=== PATIENT | male | born 1935 | race Caucasian/White ===

== ENCOUNTER 2017-12-09 11:27 | Inpatient (IN) | payer MEDICARE, OTHER ==
[2017-12-09 11:34] VITALS: BMI 29.3
[2017-12-09 12:41] LABS: BASO # 0.1 K/uL (0.0-0.2); LYMPH # 0.3 K/uL (1.0-4.3); MEAN PLATELET VOLUME 8.6 fl (7.2-11.7); MONO # 0.4 K/uL (0.0-0.8); NEUT # 6.8 K/uL (1.8-7.0); WHITE BLOOD COUNT 7.7 K/uL (4.8-10.8)
[2017-12-09 12:49] LABS: BASO % 0.9 % (0.0-2.0); EOS % 0.5 % (0.0-4.0); LYMPH % 4.3 % (20.0-40.0); MEAN CELL VOLUME 95.4 fl (80.0-94.0); MEAN CORPUSCULAR HGB CONC 34.6 g/dL (33.0-37.0); MONO % 5.4 % (0.0-10.0); NEUT % 88.9 % (50.0-75.0); NRBC % 0.1 % (0.0-0.0); PLATELET COUNT 290 K/uL (130-400); RBC 1.96 Mil/uL (4.40-5.90); RED CELL DISTRIBUTION WIDTH 13.4 % (11.5-14.5)
[2017-12-09 12:52] LABS: ALB/GLOB RATIO 1.4 (1.0-2.1); ALBUMIN 3.8 g/dL (3.5-5.0); CALCIUM 10.1 mg/dL (8.4-10.2); HEMOGLOBIN 6.5 g/dL (12.0-18.0)
[2017-12-09 13:03] LABS: SQUAMOUS EPITHIAL < 1 /hpf (0-5); URINE BILIRUBIN NEGATIVE (NEGATIVE); URINE BLOOD MODERATE (NEGATIVE); URINE CLARITY SLIGHTY-CLOUDY (Clear); URINE COLOR YELLOW (YELLOW); URINE GLUCOSE (UA) NEG (Normal); URINE HYALINE CAST 0-2 /hpf (0-2); URINE LEUKOCYTE ESTERASE NEG Leu/uL (Negative); URINE PROTEIN >=500 mg/dL (NEGATIVE); URINE UROBILINOGEN 0.2-1.0 mg/dL (0.2-1.0)
[2017-12-09 13:04] LABS: PROTHROMBIN TIME 10.7 Seconds (9.8-13.1)
--- NOTE | 2017-12-09 13:05 | ED PDOC ---
HPI: Abdomen Time Seen by Provider: 12/09/17 11:56 Chief Complaint (Nursing): GI Problem Chief Complaint (Provider): rectal bleeding, anemia History Per: Patient, Other (PMD ) Onset/Duration Of Symptoms: Gradual (2 months) Associated Symptoms: denies: Vomiting, Diarrhea Exacerbating Factors: Walking Alleviating Factors: None Last Bowel Movement: Today Additional Complaint(s): 82yo male hx colon and prostate cancer s/p recent radiation, states hes been having intermittent rectal bleeding for 2 months, went to PMD Dr Watts and had outpatient bloodwork done, showing anemia 7.6, patient does not some dizziness and exertional dyspnea, fatigue, denies chest pain, headache, syncope or hematuria. Past Medical History Reviewed: Historical Data, Nursing Documentation, Vital Signs Vital Signs: Last Vital Signs Temp 98.5 F 12/09/17 14:46 Pulse 83 12/09/17 14:46 Resp 12 12/09/17 14:46 BP 140/79 12/09/17 14:46 Pulse Ox 94 L 12/09/17 14:46 - Medical History PMH: HTN - Surgical History Other surgeries: colon - Family History Family History: States: Unknown Family Hx - Living Arrangements Living Arrangements: With Family - Social History Current smoker - smoking cessation education provided: No - Home Medications Home Medications: Ambulatory Orders Medication Instructions Recorded Clopidogrel [Plavix] 75 mg PO DAILY 12/09/17 Enalapril/Hydrochlorothiazide 1 tab PO DAILY 12/09/17 [Enalapril Maleate and Hydrochlorothiazide 10 ] Finasteride [Proscar] 5 mg PO DAILY 12/09/17 Folic Acid 1 mg PO DAILY 12/09/17 Glipizide [Glucotrol] 10 mg PO BID 12/09/17 Sitagliptin Phos/Metformin HCl 1 each PO BID 12/09/17 [Janumet 50-1,000 mg Tablet] Tamsulosin HCl [Flomax] 0.4 mg PO DAILY 12/09/17 amLODIPine [Norvasc] 10 mg PO DAILY 12/09/17 - Allergies Allergies/Adverse Reactions: Allergies Allergy/AdvReac Type Severity Reaction Status Date / Time pollen extracts Allergy SHORTNESS Verified 04/13/16 14:00 OF BREATH Review of Systems ROS Statement: Except As Marked, All Systems Reviewed And Found Negative Constitutional: Negative for: Fever Cardiovascular: Negative for: Chest Pain Respiratory: Negative for: Shortness of Breath Gastrointestinal: Positive for: Hematochezia. Negative for: Abdominal Pain, Constipation, Hematemesis Genitourinary Male: Negative for: Dysuria, Hematuria Musculoskeletal: Negative for: Neck Pain Skin: Negative for: Rash Neurological: Positive for: Dizziness. Negative for: Weakness Physical Exam - Reviewed Nursing Documentation Reviewed: Yes Vital Signs Reviewed: Yes - Physical Exam Appears: Positive for: Well, Non-toxic, No Acute Distress Head Exam: Positive for: ATRAUMATIC, NORMAL INSPECTION, NORMOCEPHALIC Skin: Positive for: Warm, Pallor Eye Exam: Positive for: EOMI, Normal appearance, PERRL ENT: Positive for: Normal ENT Inspection Neck: Positive for: Normal, Painless ROM Cardiovascular/Chest: Positive for: Regular Rate, Rhythm Respiratory: Positive for: CNT, Normal Breath Sounds Gastrointestinal/Abdominal: Positive for: Soft. Negative for: Tenderness, Guarding Back: Positive for: Normal Inspection Extremity: Positive for: Normal ROM Neurologic/Psych: Positive for: Alert, Oriented. Negative for: Motor/Sensory Deficits - Laboratory Results Result Diagrams: 12/09/17 12:14 12/09/17 12:14 - ECG O2 Sat by Pulse Oximetry: 97 Medical Decision Making Medical Decision Making: labs reviewed and reveal worsening anemia d/w Dr Watts, Hgb this week 7.6 outpatient, now worsening. Admit hospitalist Dr Hathaway for PRBC and oncology/ GI evaluations. PRBC ordered Results d/w patient, he agrees w plan and PRBC transfusion consent obtained Disposition - Clinical Impression Clinical Impression: Malignancy, Severe anemia - Patient ED Disposition Is Patient to be Admitted: Yes Counseled Patient/Family Regarding: Studies Performed - Disposition Disposition Time: 12:50 Condition: FAIR - Pt Status Changed To: Hospital Disposition Of: Inpatient - Admit Certification Admit to Inpatient:: After my assessment, the patient will require hospitalization for at least two midnights. This is because of the severity of symptoms shown, intensity of services needed, and/or the medical risk in this patient being treated as an outpatient. - POA Present On Arrival: None
[2017-12-09 13:07] LABS: PARTIAL THROMBOPLASTIN TIME 27.3 Seconds (25.6-37.1)
--- NOTE | 2017-12-09 13:31 | RAD ---
Date of service: 12/09/2017 HISTORY: SOB COMPARISON: 04/13/2016. FINDINGS: LUNGS: The lungs are well inflated and clear. PLEURA: Suspect small right pleural effusion, no pneumothorax apparent. There is fluid in the minor fissure. CARDIOVASCULAR: There is persistent mild cardiomegaly. OSSEOUS STRUCTURES: No significant abnormalities. VISUALIZED UPPER ABDOMEN: Normal. OTHER FINDINGS: There is chronic elevation of the right hemidiaphragm. IMPRESSION: No active pulmonary disease. Suspect small right pleural effusion.
[2017-12-09 13:42] LABS: LYMPHOCYTE 5 % (20-50); MONOCYTE 7 % (0-10); NEUTROPHIL 88 % (42-75); PLATELET ESTIMATE NORMAL (NORMAL); TOTAL CELLS COUNTED 100
[2017-12-09 13:43] LABS: HYPOCHROMIC MODERATE; PLATELET CLUMPS PRESENT; TOXIC GRANULATION PRESENT
[2017-12-09 17:01] LABS: BASO % 0.6 % (0.0-2.0); EOS % 0.2 % (0.0-4.0); HEMOGLOBIN 6.6 g/dL (12.0-18.0); LYMPH # 0.7 K/uL (1.0-4.3); LYMPH % 9.9 % (20.0-40.0); MEAN CELL VOLUME 94.8 fl (80.0-94.0); MEAN CORPUSCULAR HEMOGLOBIN 33.1 pg (27.0-31.0); MEAN CORPUSCULAR HGB CONC 34.9 g/dL (33.0-37.0); MEAN PLATELET VOLUME 7.8 fl (7.2-11.7); MONO # 0.5 K/uL (0.0-0.8); MONO % 7.8 % (0.0-10.0); NEUT # 5.7 K/uL (1.8-7.0); NEUT % 81.5 % (50.0-75.0); RBC 2.01 Mil/uL (4.40-5.90); RED CELL DISTRIBUTION WIDTH 13.3 % (11.5-14.5)
--- NOTE | 2017-12-09 17:44 | CP.PCM.HP ---
History of Present Illness - History of Present Illness History of Present Illness: 82-year-old male with a past medical history of colon cancer (2008), prostate cancer (2018), stroke, DM2, and HTN presents to the ED with a two month history of persistent rectal bleeding and weakness. The bleeding began 2-4 months status -post radiation therapy for prostate cancer, is always accompanied with a bowel movement, is dark red in color, and was initially very minimal but progressively became more and more. He admits to constipation, having a bowel movement every 1-3 days. He has recently began to feel very weak, especially upon exertion, which is what prompted him to visit his PMD (Dr. Watts) who found a Hgb 7.6 and recommended coming to the ED for a transfusion. He was due for a routine colonoscopy about 6 months ago, but did not get one. Patient denies chills, dizziness, syncope, orthostatic changes, shortness of breath, loss of appetite, weight loss, chest pain, abdominal pain, hematuria, frequency , urgency, pain with bowel movements, diarrhea and difficulty sleeping. Patient is semi-poor historian in regard to dates/timeline. PMD: Dr. Watts Specialist: Dr. Nichols (Urologist), Dr. Verdin (Onc - Colon Ca 2007) PMHx: Colon Cancer (2008), prostate cancer (2018), stroke, DM2, HTN SurgHx: colon cancer - unsure of exact procedure FMhx: unkown SocHx: denies etoh, tobacco, elicit drugs Allergies: NKDA ROS: all 12 systems reviewed and negative except as mentioned in HPI ED course: BP 133/58, HR 97, T 98.9F, RR 20 -EKG: appears to be normal sinus rhythm, awaiting final, official read -CXR: no active pulmonary disease, suspect small right pleural effusion -CBC: Hgb 6.5, Hct 18.7 -Coags: WNL -CMP: BUN 27 all others WNL -Random glucose: 213 mg/dl -UA: 27 RBC, all else WNL -ED treatment: 2 units PRBCs Present on Admission - Present on Admission Any Indicators Present on Admission: No History of DVT/PE: No History of Uncontrolled Diabetes: No Urinary Catheter: No Decubitus Ulcer Present: No Review of Systems - Review of Systems All systems: reviewed and no additional remarkable complaints except (as per HPI ) Past Patient History - Past Medical History & Family History Past Medical History?: Yes - Past Social History Smoking Status: Former Smoker Alcohol: None Drugs: Denies - CARDIAC Hx Hypertension: Yes - PULMONARY Hx Asthma: No - ENDOCRINE/METABOLIC Hx Endocrine Disorders: Yes - HEMATOLOGICAL/ONCOLOGICAL Hx Cancer: Yes (colon, prostate) - GENITOURINARY/GYNECOLOGICAL Hx Prostate Cancer: Yes - PSYCHIATRIC Hx Substance Use: No - SURGICAL HISTORY Hx Surgeries: Yes Other/Comment: bowel surgery, left knee - ANESTHESIA Hx Anesthesia: Yes Hx Anesthesia Reactions: No Meds Allergies/Adverse Reactions: Allergies Allergy/AdvReac Type Severity Reaction Status Date / Time pollen extracts Allergy SHORTNESS Verified 04/13/16 14:00 OF BREATH Physical Exam - Head Exam Head Exam: ATRAUMATIC - Eye Exam Additional comments: pallor mucous membranes - ENT Exam ENT Exam: Mucous Membranes Moist - Neck Exam Neck exam: Positive for: Full Rom - Respiratory Exam Respiratory Exam: Clear to Auscultation Bilateral, NORMAL BREATHING PATTERN - Cardiovascular Exam Cardiovascular Exam: REGULAR RHYTHM - GI/Abdominal Exam GI & Abdominal Exam: Distended, Normal Bowel Sounds, Soft. absent: Guarding, Mass, Tenderness - Rectal Exam Rectal Exam: absent: Hemorrhoids, Fecal Impaction Additional comments: no hemorrhoids, no stool in rectal vault, bright red blood noted, actively bleeding after exam - Extremities Exam Extremities exam: Positive for: pedal edema - Neurological Exam Neurological exam: Alert - Psychiatric Exam Psychiatric exam: Normal Affect, Normal Mood - Skin Skin Exam: Pallor, Warm Additional comments: many seborrhetic keratosis on scalp, face, arms Results - Vital Signs Recent Vital Signs: Last Vital Signs Temp 98.4 F 12/09/17 16:26 Pulse 92 H 12/09/17 16:26 Resp 20 12/09/17 16:26 BP 170/77 H 12/09/17 16:26 Pulse Ox 98 12/09/17 16:26 - Labs Result Diagrams: 12/09/17 16:41 12/09/17 12:14 Labs: Laboratory Results - last 24 hr 12/09/17 12/09/17 12/09/17 12:14 12:14 12:14 WBC 7.7 RBC 1.96 L Hgb 6.5 L* Hct 18.7 L MCV 95.4 H MCH 33.0 H MCHC 34.6 RDW 13.4 Plt Count 290 MPV 8.6 Neut % (Auto) 88.9 H Lymph % (Auto) 4.3 L Rock % (Auto) 5.4 Eos % (Auto) 0.5 Baso % (Auto) 0.9 Neut # (Auto) 6.8 Lymph # (Auto) 0.3 L Rock # (Auto) 0.4 Eos # (Auto) 0.0 Baso # (Auto) 0.1 Neutrophils % (Manual) 88 H Lymphocytes % (Manual) 5 L Monocytes % (Manual) 7 Toxic Granulation Present Platelet Estimate Normal Plt Clumps, EDTA Present Hypochromasia (manual) Moderate PT INR APTT Sodium 138 Potassium 4.2 Chloride 106 Carbon Dioxide 25 Anion Gap 11 BUN 27 H Creatinine 1.5 Est GFR ( Amer) 54 Est GFR (Non-Af Amer) 45 Random Glucose 213 H Calcium 10.1 Total Bilirubin 0.6 AST 27 ALT 19 L Alkaline Phosphatase 58 Total Protein 6.5 Albumin 3.8 Globulin 2.7 Albumin/Globulin Ratio 1.4 Urine Color Urine Clarity Urine pH Ur Specific Brid[place]man Urine Protein Urine Glucose (UA) Urine Ketones Urine Blood Urine Nitrate Urine Bilirubin Urine Urobilinogen Ur Leukocyte Esterase Urine RBC (Auto) Urine Microscopic WBC Ur Squamous Epith Cells Hyaline Casts Blood Type Cancelled Antibody Screen Cancelled Crossmatch BBK History Checked Cancelled 12/09/17 12/09/17 12/09/17 12:30 12:35 13:15 WBC RBC Hgb Hct MCV MCH MCHC RDW Plt Count MPV Neut % (Auto) Lymph % (Auto) Rock % (Auto) Eos % (Auto) Baso % (Auto) Neut # (Auto) Lymph # (Auto) Rock # (Auto) Eos # (Auto) Baso # (Auto) Neutrophils % (Manual) Lymphocytes % (Manual) Monocytes % (Manual) Toxic Granulation Platelet Estimate Plt Clumps, EDTA Hypochromasia (manual) PT 10.7 INR 1.0 APTT 27.3 Sodium Potassium Chloride Carbon Dioxide Anion Gap BUN Creatinine Est GFR ( Amer) Est GFR (Non-Af Amer) Random Glucose Calcium Total Bilirubin AST ALT Alkaline Phosphatase Total Protein Albumin Globulin Albumin/Globulin Ratio Urine Color Yellow Urine Clarity Slighty-cloudy Urine pH 6.0 Ur Specific [place] 1.013 Urine Protein >=500 Urine Glucose (UA) Neg Urine Ketones Negative Urine Blood Moderate Urine Nitrate Negative Urine Bilirubin Negative Urine Urobilinogen 0.2-1.0 Ur Leukocyte Esterase Neg Urine RBC (Auto) 27 H Urine Microscopic WBC 5 Ur Squamous Epith Cells < 1 Hyaline Casts 0-2 Blood Type O POSITIVE Antibody Screen Negative Crossmatch See Detail BBK History Checked Patient has bt 12/09/17 16:41 WBC 7.0 RBC 2.01 L Hgb 6.6 L Hct 19.0 L MCV 94.8 H MCH 33.1 H MCHC 34.9 RDW 13.3 Plt Count 284 MPV 7.8 Neut % (Auto) 81.5 H Lymph % (Auto) 9.9 L Rock % (Auto) 7.8 Eos % (Auto) 0.2 Baso % (Auto) 0.6 Neut # (Auto) 5.7 Lymph # (Auto) 0.7 L Rock # (Auto) 0.5 Eos # (Auto) 0.0 Baso # (Auto) 0.0 Neutrophils % (Manual) Lymphocytes % (Manual) Monocytes % (Manual) Toxic Granulation Platelet Estimate Plt Clumps, EDTA Hypochromasia (manual) PT INR APTT Sodium Potassium Chloride Carbon Dioxide Anion Gap BUN Creatinine Est GFR ( Amer) Est GFR (Non-Af Amer) Random Glucose Calcium Total Bilirubin AST ALT Alkaline Phosphatase Total Protein Albumin Globulin Albumin/Globulin Ratio Urine Color Urine Clarity Urine pH Ur Specific [place] Urine Protein Urine Glucose (UA) Urine Ketones Urine Blood Urine Nitrate Urine Bilirubin Urine Urobilinogen Ur Leukocyte Esterase Urine RBC (Auto) Urine Microscopic WBC Ur Squamous Epith Cells Hyaline Casts Blood Type Antibody Screen Crossmatch BBK History Checked Assessment & Plan - Assessment and Plan (Free Text) Assessment: 82-year-old male was admitted for symptomatic anemia secondary to a 2 month history of rectal bleeding. His PMH includes colon cancer, prostate cancer, stroke, HTN, and DM2. Rectal bleeding began 2-4 months after completion of radiation therapy for prostate cancer. 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
[2017-12-09] MEDS: Potassium Ch 20mEq in D5-1/2NS 1,000 ML IV SCH (18:03)
--- NOTE | 2017-12-09 21:02 | CARD ---
APPROVED REPORT Date of service: 12/09/2017 <Conclusion> Normal sinus rhythm Nonspecific ST abnormality Abnormal ECG
[2017-12-10 01:05] VITALS: O2SAT 97
[2017-12-10 05:17] LABS: BASO % 0.6 % (0.0-2.0); EOS # 0.1 K/uL (0.0-0.7); EOS % 2.1 % (0.0-4.0); HEMOGLOBIN 8.5 g/dL (12.0-18.0); LYMPH # 0.7 K/uL (1.0-4.3); LYMPH % 11.6 % (20.0-40.0); MEAN CELL VOLUME 92.4 fl (80.0-94.0); MEAN CORPUSCULAR HEMOGLOBIN 32.1 pg (27.0-31.0); MEAN CORPUSCULAR HGB CONC 34.7 g/dL (33.0-37.0); MEAN PLATELET VOLUME 8.3 fl (7.2-11.7); MONO # 0.8 K/uL (0.0-0.8); MONO % 12.8 % (0.0-10.0); NEUT # 4.4 K/uL (1.8-7.0); NEUT % 72.9 % (50.0-75.0); RBC 2.64 Mil/uL (4.40-5.90); RED CELL DISTRIBUTION WIDTH 14.4 % (11.5-14.5)
[2017-12-10] MEDS ORDERED: Chlorhexidine Gluconate 1 APPL/PKT TP ONE (07:57)
[2017-12-10 08:17] LABS: IRON 69 ug/dL (49-181)
[2017-12-10 08:27] LABS: % IRON SATURATION 22 % (20-55); TOTAL IRON BINDING CAPACITY 308 ug/dL (250-450)
[2017-12-10 08:31] VITALS: RESP 20
--- NOTE | 2017-12-10 08:31 | CP.PCM.CON ---
<Kvng Graham - Last Filed: 12/10/17 13:07> History of Present Illness - History of Present Illness History of Present Illness: PGY-4 GI Fellow Consult Note Mr. Ryan is a 82 yo Hisp Male with h/o Colon CA (2008, s/p resection and chemo), Prostate CA (2018, on XRT), CVA (on clopidogrel), DM2, HTN presenting with complaint of rectal bleeding and generalized weakness. He states over the last few months he has had dark red stools, ever since starting XRT for his prostate CA. Denies any abd pain, katie blood, hematemesis. State that he thinks he was due for repeat CSPY about 6 months ago. After not paying much attention to his symptoms for several weeks, he eventually becamed more fatigued and weak, which prompted him to present to PCP for evaluation and ultimate referral to ED where he was found to have Hgb 6.5 (unclear baseline) and admitted for further evaluation. 12 point ROS negative other than stated above MHx: See above SurgHx: Colon resection (unclear details) Meds: Reviewed in MAR/chart FamHx: Unknown SocHx: Negative x3 All: Pollen Past Patient History - Past Medical History & Family History Past Medical History?: Yes - Past Social History Smoking Status: Former Smoker Alcohol: None Drugs: Denies - CARDIAC Hx Hypertension: Yes - PULMONARY Hx Asthma: No - NEUROLOGICAL Hx Neurological Disorder: No - HEENT Hx HEENT Problems: No - RENAL Hx Chronic Kidney Disease: No - ENDOCRINE/METABOLIC Hx Endocrine Disorders: Yes - HEMATOLOGICAL/ONCOLOGICAL Hx Cancer: Yes (colon, prostate) - INTEGUMENTARY Hx Dermatological Problems: No - MUSCULOSKELETAL/RHEUMATOLOGICAL Hx Musculoskeletal Disorders: No Hx Falls: No - GASTROINTESTINAL Hx Gastrointestinal Disorders: No - GENITOURINARY/GYNECOLOGICAL Hx Prostate Cancer: Yes - PSYCHIATRIC Hx Substance Use: No - SURGICAL HISTORY Hx Surgeries: Yes Other/Comment: bowel surgery, left knee - ANESTHESIA Hx Anesthesia: Yes Hx Anesthesia Reactions: No Meds Home Medications: Home Medication List Medication Instructions Recorded Confirmed Type Docusate [Colace] 100 mg PO DAILY #30 cap 12/10/17 Rx Enalapril/Hydrochlorothiazide 1 tab PO DAILY #30 tablet 12/10/17 Rx [Enalapril-Hctz 10-25 mg Tablet] Ferrous Sulfate/Vit C/Folic AC 1 each PO DAILY #30 tablet.er 12/10/17 Rx [Folitab 500 Caplet] Finasteride [Proscar] 5 mg PO DAILY #30 tab 12/10/17 Rx Folic Acid 1 mg PO DAILY #30 tab 12/10/17 Rx Glipizide [Glucotrol] 10 mg PO BID #30 tablet 12/10/17 Rx Sitagliptin Phos/Metformin HCl 1 each PO BID #60 tablet 12/10/17 Rx [Janumet 50-1,000 mg Tablet] Tamsulosin HCl [Flomax] 0.4 mg PO DAILY #30 cap.er.24h 12/10/17 Rx amLODIPine [Norvasc] 10 mg PO DAILY #30 tab 12/10/17 Rx Allergies/Adverse Reactions: Allergies Allergy/AdvReac Type Severity Reaction Status Date / Time pollen extracts Allergy SHORTNESS Verified 04/13/16 14:00 OF BREATH - Medications Medications: Current Medications Amlodipine Besylate (Norvasc) 10 mg PO DAILY [facility] Last Admin: 12/09/17 18:01 Dose: 10 mg Enalapril Maleate (Vasotec) 10 mg PO DAILY [facility] Last Admin: 12/09/17 18:00 Dose: 10 mg Finasteride (Proscar) 5 mg PO DAILY [facility] Folic Acid (Folic Acid) 1 mg PO DAILY [facility] Hydrochlorothiazide (Hydrodiuril) 25 mg PO DAILY [facility] Potassium Chloride/Dextrose/Sod Cl (Potassium Chl 20 Meq In D5-1/2ns) 1,000 mls @ 125 mls/hr IV .Q8H [facility] Stop: 12/10/17 16:35 Last Admin: 12/09/17 18:03 Dose: Not Given Tamsulosin HCl (Flomax) 0.4 mg PO DAILY [facility] Physical Exam - Constitutional Appears: Well, Non-toxic, No Acute Distress - Head Exam Head Exam: ATRAUMATIC, NORMAL INSPECTION - Eye Exam Eye Exam: EOMI. absent: Conjunctival injection, Scleral icterus - ENT Exam ENT Exam: Mucous Membranes Moist. absent: Mucous Membranes Dry, Normal External Ear Exam - Respiratory Exam Respiratory Exam: Clear to Auscultation Bilateral, NORMAL BREATHING PATTERN. absent: Wheezes - Cardiovascular Exam Cardiovascular Exam: REGULAR RHYTHM, RRR - GI/Abdominal Exam GI & Abdominal Exam: Normal Bowel Sounds, Soft. absent: Bruit, Diminished Bowel Sounds, Distended, Firm, Guarding, Hernia, Hyperactive Bowel Sounds, Hypoactive Bowel Sounds, Mass, Organomegaly, Pulsatile Mass, Rebound, Rigid, Tenderness Additional comments: large midline scar, small LLQ scar - Rectal Exam Rectal Exam: NORMAL INSPECTION Additional comments: scant amount of brownish-red stool in rectal vault - Extremities Exam Extremities exam: Positive for: normal inspection. Negative for: pedal edema - Neurological Exam Neurological exam: Alert, CN II-XII Intact, Oriented x3 - Psychiatric Exam Psychiatric exam: Normal Affect, Normal Mood - Skin Skin Exam: Normal Color, Warm Results - Vital Signs Recent Vital Signs: Last Vital Signs Temp 98.1 F 12/10/17 05:01 Pulse 67 12/10/17 05:01 Resp 18 12/10/17 05:01 BP 134/62 12/10/17 05:01 Pulse Ox 97 12/10/17 05:01 - Labs Result Diagrams: 12/10/17 04:20 12/10/17 04:20 Labs: Laboratory Results - last 24 hr 12/09/17 12/09/17 12/09/17 12:14 12:14 12:14 WBC 7.7 RBC 1.96 L Hgb 6.5 L* Hct 18.7 L MCV 95.4 H MCH 33.0 H MCHC 34.6 RDW 13.4 Plt Count 290 MPV 8.6 Neut % (Auto) 88.9 H Lymph % (Auto) 4.3 L [place] % (Auto) 5.4 Eos % (Auto) 0.5 Baso % (Auto) 0.9 Neut # (Auto) 6.8 Lymph # (Auto) 0.3 L [place] # (Auto) 0.4 Eos # (Auto) 0.0 Baso # (Auto) 0.1 Neutrophils % (Manual) 88 H Lymphocytes % (Manual) 5 L Monocytes % (Manual) 7 Toxic Granulation Present Platelet Estimate Normal Plt Clumps, EDTA Present Hypochromasia (manual) Moderate PT INR APTT Sodium 138 Potassium 4.2 Chloride 106 Carbon Dioxide 25 Anion Gap 11 BUN 27 H Creatinine 1.5 Est GFR ( Amer) 54 Est GFR (Non-Af Amer) 45 POC Glucose (mg/dL) Random Glucose 213 H Calcium 10.1 Iron Total Bilirubin 0.6 AST 27 ALT 19 L Alkaline Phosphatase 58 Total Protein 6.5 Albumin 3.8 Globulin 2.7 Albumin/Globulin Ratio 1.4 Urine Color Urine Clarity Urine pH Ur Specific [place] Urine Protein Urine Glucose (UA) Urine Ketones Urine Blood Urine Nitrate Urine Bilirubin Urine Urobilinogen Ur Leukocyte Esterase Urine RBC (Auto) Urine Microscopic WBC Ur Squamous Epith Cells Hyaline Casts Blood Type Cancelled Antibody Screen Cancelled Crossmatch BBK History Checked Cancelled 12/09/17 12/09/17 12/09/17 12:30 12:35 13:15 WBC RBC Hgb Hct MCV MCH MCHC RDW Plt Count MPV Neut % (Auto) Lymph % (Auto) [place] % (Auto) Eos % (Auto) Baso % (Auto) Neut # (Auto) Lymph # (Auto) [place] # (Auto) Eos # (Auto) Baso # (Auto) Neutrophils % (Manual) Lymphocytes % (Manual) Monocytes % (Manual) Toxic Granulation Platelet Estimate Plt Clumps, EDTA Hypochromasia (manual) PT 10.7 INR 1.0 APTT 27.3 Sodium Potassium Chloride Carbon Dioxide Anion Gap BUN Creatinine Est GFR ( Amer) Est GFR (Non-Af Amer) POC Glucose (mg/dL) Random Glucose Calcium Iron Total Bilirubin AST ALT Alkaline Phosphatase Total Protein Albumin Globulin Albumin/Globulin Ratio Urine Color Yellow Urine Clarity Slighty-cloudy Urine pH 6.0 Ur Specific [place] 1.013 Urine Protein >=500 Urine Glucose (UA) Neg Urine Ketones Negative Urine Blood Moderate Urine Nitrate Negative Urine Bilirubin Negative Urine Urobilinogen 0.2-1.0 Ur Leukocyte Esterase Neg Urine RBC (Auto) 27 H Urine Microscopic WBC 5 Ur Squamous Epith Cells < 1 Hyaline Casts 0-2 Blood Type O POSITIVE Antibody Screen Negative Crossmatch See Detail BBK History Checked Patient has bt 12/09/17 12/09/17 12/10/17 16:41 21:19 04:20 WBC 7.0 RBC 2.01 L Hgb 6.6 L Hct 19.0 L MCV 94.8 H MCH 33.1 H MCHC 34.9 RDW 13.3 Plt Count 284 MPV 7.8 Neut % (Auto) 81.5 H Lymph % (Auto) 9.9 L [place] % (Auto) 7.8 Eos % (Auto) 0.2 Baso % (Auto) 0.6 Neut # (Auto) 5.7 Lymph # (Auto) 0.7 L [place] # (Auto) 0.5 Eos # (Auto) 0.0 Baso # (Auto) 0.0 Neutrophils % (Manual) Lymphocytes % (Manual) Monocytes % (Manual) Toxic Granulation Platelet Estimate Plt Clumps, EDTA Hypochromasia (manual) PT INR APTT Sodium 139 Potassium 4.4 Chloride 108 H Carbon Dioxide 27 Anion Gap 8 L BUN 22 H Creatinine 1.4 Est GFR ( Amer) 59 Est GFR (Non-Af Amer) 49 POC Glucose (mg/dL) 158 H Random Glucose 157 H Calcium 10.0 Iron Total Bilirubin AST ALT Alkaline Phosphatase Total Protein Albumin Globulin Albumin/Globulin Ratio Urine Color Urine Clarity Urine pH Ur Specific [place] Urine Protein Urine Glucose (UA) Urine Ketones Urine Blood Urine Nitrate Urine Bilirubin Urine Urobilinogen Ur Leukocyte Esterase Urine RBC (Auto) Urine Microscopic WBC Ur Squamous Epith Cells Hyaline Casts Blood Type Antibody Screen Crossmatch BBK History Checked 12/10/17 12/10/17 04:20 07:59 WBC 6.0 RBC 2.64 L Hgb 8.5 L Hct 24.4 L MCV 92.4 D MCH 32.1 H MCHC 34.7 RDW 14.4 Plt Count 256 MPV 8.3 Neut % (Auto) 72.9 Lymph % (Auto) 11.6 L [place] % (Auto) 12.8 H Eos % (Auto) 2.1 Baso % (Auto) 0.6 Neut # (Auto) 4.4 Lymph # (Auto) 0.7 L [place] # (Auto) 0.8 Eos # (Auto) 0.1 Baso # (Auto) 0.0 Neutrophils % (Manual) Lymphocytes % (Manual) Monocytes % (Manual) Toxic Granulation Platelet Estimate Plt Clumps, EDTA Hypochromasia (manual) PT INR APTT Sodium Potassium Chloride Carbon Dioxide Anion Gap BUN Creatinine Est GFR ( Amer) Est GFR (Non-Af Amer) POC Glucose (mg/dL) Random Glucose Calcium Iron 69 Total Bilirubin AST ALT Alkaline Phosphatase Total Protein Albumin Globulin Albumin/Globulin Ratio Urine Color Urine Clarity Urine pH Ur Specific [place] Urine Protein Urine Glucose (UA) Urine Ketones Urine Blood Urine Nitrate Urine Bilirubin Urine Urobilinogen Ur Leukocyte Esterase Urine RBC (Auto) Urine Microscopic WBC Ur Squamous Epith Cells Hyaline Casts Blood Type Antibody Screen Crossmatch BBK History Checked Assessment & Plan - Assessment and Plan (Free Text) Assessment: 82 yo Hisp Male with h/o Colon CA and Prostate CA s/p XRT presenting with rectal bleeding and fatigue. # Rectal bleeding: Likely due to radiation proctitis given history of XRT then onset of symptoms. Chronic, slow bleed over weeks to months. No katie blood rectal exam. Hemoglobin responding appropriately after 2 units PRBCs. # H/o Colon CA: s/p resection and chemo. Reportedly due for repeat colonoscopy 6 months ago # Prostate CA: started on XRT few monts ago Plan: - Supportive care - Transfuse Hgb to goal of 7, stable response - Discuss risks benefits of ongoing clopidogrel use if ongoing XRT therapy planned - Plan for repeat Colonoscopy as outpatient Pt seen and examined with Dr. Carnes. Please see attestation for further recs/ changes. <Robby Carnes - Last Filed: 12/10/17 15:37> Results - Vital Signs Recent Vital Signs: Last Vital Signs Temp 98.3 F 12/10/17 12:14 Pulse 64 12/10/17 12:14 Resp 20 12/10/17 12:14 BP 120/54 L 12/10/17 12:14 Pulse Ox 97 12/10/17 12:14 - Labs Result Diagrams: 12/10/17 04:20 12/10/17 04:20 Labs: Laboratory Results - last 24 hr 12/09/17 12/09/17 12/09/17 13:15 16:41 21:19 WBC 7.0 RBC 2.01 L Hgb 6.6 L Hct 19.0 L MCV 94.8 H MCH 33.1 H MCHC 34.9 RDW 13.3 Plt Count 284 MPV 7.8 Neut % (Auto) 81.5 H Lymph % (Auto) 9.9 L [place] % (Auto) 7.8 Eos % (Auto) 0.2 Baso % (Auto) 0.6 Neut # (Auto) 5.7 Lymph # (Auto) 0.7 L [place] # (Auto) 0.5 Eos # (Auto) 0.0 Baso # (Auto) 0.0 Sodium Potassium Chloride Carbon Dioxide Anion Gap BUN Creatinine Est GFR ( Amer) Est GFR (Non-Af Amer) POC Glucose (mg/dL) 158 H Random Glucose Calcium Iron TIBC % Saturation Ferritin Carcinoembryonic Ag Vitamin B12 Blood Type O POSITIVE Antibody Screen Negative Crossmatch See Detail BBK History Checked Patient has bt 12/10/17 12/10/17 12/10/17 04:20 04:20 07:52 WBC 6.0 RBC 2.64 L Hgb 8.5 L Hct 24.4 L MCV 92.4 D MCH 32.1 H MCHC 34.7 RDW 14.4 Plt Count 256 MPV 8.3 Neut % (Auto) 72.9 Lymph % (Auto) 11.6 L [place] % (Auto) 12.8 H Eos % (Auto) 2.1 Baso % (Auto) 0.6 Neut # (Auto) 4.4 Lymph # (Auto) 0.7 L [place] # (Auto) 0.8 Eos # (Auto) 0.1 Baso # (Auto) 0.0 Sodium 139 Potassium 4.4 Chloride 108 H Carbon Dioxide 27 Anion Gap 8 L BUN 22 H Creatinine 1.4 Est GFR ( Amer) 59 Est GFR (Non-Af Amer) 49 POC Glucose (mg/dL) Random Glucose 157 H Calcium 10.0 Iron TIBC % Saturation Ferritin 42.7 Carcinoembryonic Ag 1.5 Vitamin B12 336 Blood Type Antibody Screen Crossmatch BBK History Checked 12/10/17 07:59 WBC RBC Hgb Hct MCV MCH MCHC RDW Plt Count MPV Neut % (Auto) Lymph % (Auto) [place] % (Auto) Eos % (Auto) Baso % (Auto) Neut # (Auto) Lymph # (Auto) [place] # (Auto) Eos # (Auto) Baso # (Auto) Sodium Potassium Chloride Carbon Dioxide Anion Gap BUN Creatinine Est GFR ( Amer) Est GFR (Non-Af Amer) POC Glucose (mg/dL) Random Glucose Calcium Iron 69 TIBC 308 % Saturation 22 Ferritin Carcinoembryonic Ag Vitamin B12 Blood Type Antibody Screen Crossmatch BBK History Checked Attending/Attestation - Attestation I have personally seen and examined this patient.: Yes I have fully participated in the care of the patient.: Yes I have reviewed all pertinent clinical information: Yes Notes (Text): 12/10/17 15:36 Patient seen earlier today. this is a 82 yo Hisp Male with h/o Colon CA and Prostate CA s/p XRT presenting with intermittent rectal bleeding and fatigue after radiation s/p 2 units PRBC with appropriate response. Bleeding stopped. Outpatient colonoscopy with primary GI
[2017-12-10] MEDS: Potassium Ch 20mEq in D5-1/2NS 1,000 ML IV SCH (08:34)
--- NOTE | 2017-12-10 08:39 | CP.PCM.DIS ---
Provider - Provider Date of Admission: 12/09/17 13:01 Attending physician: Juarez [place] MD Time Spent in preparation of Discharge (in minutes): 35 Diagnosis - Discharge Diagnosis (1) Severe anemia Status: Resolved Hospital Course - Lab Results Lab Results: Most Recent Lab Values WBC 6.0 K/uL (4.8-10.8) 12/10/17 04:20 RBC 2.64 Mil/uL (4.40-5.90) L 12/10/17 04:20 Hgb 8.5 g/dL (12.0-18.0) L 12/10/17 04:20 Hct 24.4 % (35.0-51.0) L 12/10/17 04:20 MCV 92.4 fl (80.0-94.0) D 12/10/17 04:20 MCH 32.1 pg (27.0-31.0) H 12/10/17 04:20 MCHC 34.7 g/dL (33.0-37.0) 12/10/17 04:20 RDW 14.4 % (11.5-14.5) 12/10/17 04:20 Plt Count 256 K/uL (130-400) 12/10/17 04:20 MPV 8.3 fl (7.2-11.7) 12/10/17 04:20 Neut % (Auto) 72.9 % (50.0-75.0) 12/10/17 04:20 Lymph % (Auto) 11.6 % (20.0-40.0) L 12/10/17 04:20 [place] % (Auto) 12.8 % (0.0-10.0) H 12/10/17 04:20 Eos % (Auto) 2.1 % (0.0-4.0) 12/10/17 04:20 Baso % (Auto) 0.6 % (0.0-2.0) 12/10/17 04:20 Neut # (Auto) 4.4 K/uL (1.8-7.0) 12/10/17 04:20 Lymph # (Auto) 0.7 K/uL (1.0-4.3) L 12/10/17 04:20 [place] # (Auto) 0.8 K/uL (0.0-0.8) 12/10/17 04:20 Eos # (Auto) 0.1 K/uL (0.0-0.7) 12/10/17 04:20 Baso # (Auto) 0.0 K/uL (0.0-0.2) 12/10/17 04:20 Neutrophils % (Manual) 88 % (42-75) H 12/09/17 12:14 Lymphocytes % (Manual) 5 % (20-50) L 12/09/17 12:14 Monocytes % (Manual) 7 % (0-10) 12/09/17 12:14 Toxic Granulation Present 12/09/17 12:14 Platelet Estimate Normal (NORMAL) 12/09/17 12:14 Plt Clumps, EDTA Present 12/09/17 12:14 Hypochromasia (manual) Moderate 12/09/17 12:14 PT 10.7 Seconds (9.8-13.1) 12/09/17 12:30 INR 1.0 12/09/17 12:30 APTT 27.3 Seconds (25.6-37.1) 12/09/17 12:30 Sodium 139 mmol/l (132-148) 12/10/17 04:20 Potassium 4.4 MMOL/L (3.6-5.0) 12/10/17 04:20 Chloride 108 mmol/L (98-107) H 12/10/17 04:20 Carbon Dioxide 27 mmol/L (22-30) 12/10/17 04:20 Anion Gap 8 (10-20) L 12/10/17 04:20 BUN 22 mg/dl (9-20) H 12/10/17 04:20 Creatinine 1.4 mg/dl (0.8-1.5) 12/10/17 04:20 Est GFR ( Amer) 59 12/10/17 04:20 Est GFR (Non-Af Amer) 49 12/10/17 04:20 POC Glucose (mg/dL) 158 mg/dL (65-110) H 12/09/17 21:19 Random Glucose 157 mg/dL (75-110) H 12/10/17 04:20 Calcium 10.0 mg/dL (8.4-10.2) 12/10/17 04:20 Iron 69 ug/dL (49-181) 12/10/17 07:59 TIBC 308 ug/dL (250-450) 12/10/17 07:59 % Saturation 22 % (20-55) 12/10/17 07:59 Total Bilirubin 0.6 mg/dl (0.2-1.3) 12/09/17 12:14 AST 27 U/L (17-59) 12/09/17 12:14 ALT 19 U/L (21-72) L 12/09/17 12:14 Alkaline Phosphatase 58 U/L (38-126) 12/09/17 12:14 Total Protein 6.5 G/DL (6.3-8.2) 12/09/17 12:14 Albumin 3.8 g/dL (3.5-5.0) 12/09/17 12:14 Globulin 2.7 gm/dL (2.2-3.9) 12/09/17 12:14 Albumin/Globulin Ratio 1.4 (1.0-2.1) 12/09/17 12:14 Urine Color Yellow (YELLOW) 12/09/17 12:35 Urine Clarity Slighty-cloudy (Clear) 12/09/17 12:35 Urine pH 6.0 (5.0-8.0) 12/09/17 12:35 Ur Specific [place] 1.013 (1.003-1.030) 12/09/17 12:35 Urine Protein >=500 mg/dL (NEGATIVE) 12/09/17 12:35 Urine Glucose (UA) Neg mg/dL (Normal) 12/09/17 12:35 Urine Ketones Negative mg/dL (NEGATIVE) 12/09/17 12:35 Urine Blood Moderate (NEGATIVE) 12/09/17 12:35 Urine Nitrate Negative (NEGATIVE) 12/09/17 12:35 Urine Bilirubin Negative (NEGATIVE) 12/09/17 12:35 Urine Urobilinogen 0.2-1.0 mg/dL (0.2-1.0) 12/09/17 12:35 Ur Leukocyte Esterase Neg [place]/uL (Negative) 12/09/17 12:35 Urine RBC (Auto) 27 /hpf (0-3) H 12/09/17 12:35 Urine Microscopic WBC 5 /hpf (0-5) 12/09/17 12:35 Ur Squamous Epith Cells < 1 /hpf (0-5) 12/09/17 12:35 Hyaline Casts 0-2 /hpf (0-2) 12/09/17 12:35 Blood Type O POSITIVE 12/09/17 13:15 Antibody Screen Negative 12/09/17 13:15 Crossmatch See Detail 12/09/17 13:15 BBK History Checked Patient has bt 12/09/17 13:15 - Hospital Course Hospital Course: 82-year-old male with a past medical history of colon cancer (2007), prostate cancer (2018), stroke, DM2, and HTN presented to the ED with a two month history of persistent rectal bleeding and weakness. The bleeding began 2-4 months status-post radiation therapy for prostate cancer, is always accompanied with a bowel movement, is dark red in color, and was initially very minimal but progressively increased in amount. He admits to constipation, having a bowel movement every 1-3 days. He has recently began to feel very weak, especially upon exertion, which is what prompted him to visit his PMD (Dr. Watts) who found a Hgb 7.6 and recommended coming to the ED for a transfusion. He was due for a routine colonoscopy about 6 months ago, but did not get one. ED course: BP 133/58, HR 97, T 98.9F, RR 20 -EKG: appears to be normal sinus rhythm, awaiting final, official read -CXR: no active pulmonary disease, suspect small right pleural effusion -CBC: Hgb 6.5, Hct 18.7 -Coags: WNL -CMP: BUN 27 all others WNL -Random glucose: 213 mg/dl -UA: 27 RBC, all else WNL -2 units PRBCs He was admitted to telemetry for symptomatic anemia secondary to GI bleed, likely secondary to raditaion proctitis. Symptomatic anemia -Secondary to active GI bleed -2 units PRBCs -H/H 8.5/24.4 (admission 6.5/18.7 ) Rectal bleeding -Likely secondary to radiation proctitis -GI consulted: Supportive care, transfuse Hgb to goal of 7, discuss risks benefits of ongoing clopidogrel use if ongoing XRT therapy, plan for repeat Colonoscopy as outpatient History of Colon Cancer -Oncology consulted (Dr. Jarred Verdin): Labs - B12: 336, CEA: 1.5, Ferritin: 42.7; follow-up outpatient, recommend GI consult Stroke -Unknown timeline -Hold Plavix until bleeding resolves BPH -Flomax 0.4mg PO -Finasteride 5mg PO -s/p radiation for prostate cancer HTN -Vasotec 10mg daily -Amlodipine 10mg daily -HCTZ 25 mg daily DM2 -Continue home regimen Patient responded appropriately to 2 units of PRBC and reports feeling much better than on admission. He has no complaints and denies headache, nausea, chills, weakness, change in vision, vomiting, lower extremity pain, diarrhea, and constipation. He is medically cleared for discharge to home with the recommendation of following up with his PCP (Dr. Koch) in 2-3 days and scheduling an outpatient colonoscopy. Discharge Exam - Head Exam Head Exam: ATRAUMATIC, NORMAL INSPECTION - Eye Exam Eye Exam: Normal appearance - ENT Exam ENT Exam: Mucous Membranes Moist, Normal External Ear Exam - Neck Exam Neck exam: Full Rom - Respiratory Exam Respiratory Exam: Clear to PA & Lateral, NORMAL BREATHING PATTERN, UNREMARKABLE - Cardiovascular Exam Cardiovascular Exam: REGULAR RHYTHM - GI/Abdominal Exam GI & Abdominal Exam: Distended, Normal Bowel Sounds. absent: Guarding, Rebound , Tenderness - Extremities Exam Extremities exam: pedal edema - Neurological Exam Neurological exam: Alert, Oriented x3 - Psychiatric Exam Psychiatric exam: Normal Affect, Normal Mood - Skin Skin Exam: Normal Color Additional comments: pallor resolved Discharge Plan - Discharge Medications Prescriptions: amLODIPine [Norvasc] 10 mg PO DAILY #30 tab Docusate [Colace] 100 mg PO DAILY #30 cap Enalapril/Hydrochlorothiazide [Enalapril-Hctz 10-25 mg Tablet] 1 tab PO DAILY # 30 tablet Ferrous Sulfate/Vit C/Folic AC [Folitab 500 Caplet] 1 each PO DAILY #30 tablet.er Finasteride [Proscar] 5 mg PO DAILY #30 tab Folic Acid 1 mg PO DAILY #30 tab Glipizide [Glucotrol] 10 mg PO BID #30 tablet Sitagliptin Phos/Metformin HCl [Janumet 50-1,000 mg Tablet] 1 each PO BID #60 tablet Tamsulosin HCl [Flomax] 0.4 mg PO DAILY #30 cap.er.24h - Follow Up Plan Condition: FAIR Disposition: HOME/ ROUTINE Referrals: Marco Verdin MD [Staff Provider] - Joshua Watts MD [Family Provider] -
--- NOTE | 2017-12-10 08:43 | CP.PCM.CON ---
History of Present Illness - History of Present Illness History of Present Illness: This is a 82 yrs old male whom I know very well. He had a colon cancer diagnosed in 2007.He had a hemicolectomy with a colostomy(which was eventually closed). He received chemotherapy with FOLFOX, and did well. He has been regular in his follow ups in the office,his blood work and colonoscopies with Dr Kelley. Last year his PSA started increasing and he was seen by a urologist. After a biopsy he was started on RT for 6 weeks. During tis period i did not see him. He claims he is on a pill and a injection he gets monthly.(probably casodex and lupron). He finished his RT about 4-5 months ago. Since then he has seen katie blood in his stools off and on., but quantities were very small. Occasionaly it would be a significant amount . He was seen by his PMD and sent to the ER where the Hgb was only 6.5 gms. He was admitted for transfusion. He has a past h/ CVA,DM2, HTN, colon and prostate ca. Does not drink or smoke. Past Patient History - Past Medical History & Family History Past Medical History?: Yes - Past Social History Smoking Status: Former Smoker Alcohol: None Drugs: Denies - CARDIAC Hx Hypertension: Yes - PULMONARY Hx Asthma: No - NEUROLOGICAL Hx Neurological Disorder: No - HEENT Hx HEENT Problems: No - RENAL Hx Chronic Kidney Disease: No - ENDOCRINE/METABOLIC Hx Endocrine Disorders: Yes - HEMATOLOGICAL/ONCOLOGICAL Hx Cancer: Yes (colon, prostate) - INTEGUMENTARY Hx Dermatological Problems: No - MUSCULOSKELETAL/RHEUMATOLOGICAL Hx Musculoskeletal Disorders: No Hx Falls: No - GASTROINTESTINAL Hx Gastrointestinal Disorders: No - GENITOURINARY/GYNECOLOGICAL Hx Prostate Cancer: Yes - PSYCHIATRIC Hx Substance Use: No - SURGICAL HISTORY Hx Surgeries: Yes Other/Comment: bowel surgery, left knee - ANESTHESIA Hx Anesthesia: Yes Hx Anesthesia Reactions: No Meds Allergies/Adverse Reactions: Allergies Allergy/AdvReac Type Severity Reaction Status Date / Time pollen extracts Allergy SHORTNESS Verified 04/13/16 14:00 OF BREATH - Medications Medications: Current Medications Amlodipine Besylate (Norvasc) 10 mg PO DAILY [facility] Last Admin: 12/09/17 18:01 Dose: 10 mg Enalapril Maleate (Vasotec) 10 mg PO DAILY [facility] Last Admin: 12/09/17 18:00 Dose: 10 mg Finasteride (Proscar) 5 mg PO DAILY [facility] Folic Acid (Folic Acid) 1 mg PO DAILY [facility] Hydrochlorothiazide (Hydrodiuril) 25 mg PO DAILY [facility] Potassium Chloride/Dextrose/Sod Cl (Potassium Chl 20 Meq In D5-1/2ns) 1,000 mls @ 125 mls/hr IV .Q8H LAUREN Stop: 12/10/17 16:35 Last Admin: 12/09/17 18:03 Dose: Not Given Tamsulosin HCl (Flomax) 0.4 mg PO DAILY [facility] Physical Exam - Additional Findings Additional findings: Physical exam; Alert,well oriented , in no acute distress neck; supple, no adenopathy Chest; Clear, no rales or rhonchi Heart; RSR, Gr 2/6 systolic murmur. Abd; Soft, no mass, no h/s megaly Results - Vital Signs Recent Vital Signs: Last Vital Signs Temp 98.1 F 12/10/17 05:01 Pulse 67 12/10/17 05:01 Resp 18 12/10/17 05:01 BP 134/62 12/10/17 05:01 Pulse Ox 97 12/10/17 05:01 - Labs Result Diagrams: 12/10/17 04:20 12/10/17 04:20 Labs: Laboratory Results - last 24 hr 12/09/17 12/09/17 12/09/17 12:14 12:14 12:14 WBC 7.7 RBC 1.96 L Hgb 6.5 L* Hct 18.7 L MCV 95.4 H MCH 33.0 H MCHC 34.6 RDW 13.4 Plt Count 290 MPV 8.6 Neut % (Auto) 88.9 H Lymph % (Auto) 4.3 L Cottle % (Auto) 5.4 Eos % (Auto) 0.5 Baso % (Auto) 0.9 Neut # (Auto) 6.8 Lymph # (Auto) 0.3 L Cottle # (Auto) 0.4 Eos # (Auto) 0.0 Baso # (Auto) 0.1 Neutrophils % (Manual) 88 H Lymphocytes % (Manual) 5 L Monocytes % (Manual) 7 Toxic Granulation Present Platelet Estimate Normal Plt Clumps, EDTA Present Hypochromasia (manual) Moderate PT INR APTT Sodium 138 Potassium 4.2 Chloride 106 Carbon Dioxide 25 Anion Gap 11 BUN 27 H Creatinine 1.5 Est GFR ( Amer) 54 Est GFR (Non-Af Amer) 45 POC Glucose (mg/dL) Random Glucose 213 H Calcium 10.1 Iron TIBC % Saturation Total Bilirubin 0.6 AST 27 ALT 19 L Alkaline Phosphatase 58 Total Protein 6.5 Albumin 3.8 Globulin 2.7 Albumin/Globulin Ratio 1.4 Urine Color Urine Clarity Urine pH Ur Specific [place] Urine Protein Urine Glucose (UA) Urine Ketones Urine Blood Urine Nitrate Urine Bilirubin Urine Urobilinogen Ur Leukocyte Esterase Urine RBC (Auto) Urine Microscopic WBC Ur Squamous Epith Cells Hyaline Casts Blood Type Cancelled Antibody Screen Cancelled Crossmatch BBK History Checked Cancelled 12/09/17 12/09/17 12/09/17 12:30 12:35 13:15 WBC RBC Hgb Hct MCV MCH MCHC RDW Plt Count MPV Neut % (Auto) Lymph % (Auto) Cottle % (Auto) Eos % (Auto) Baso % (Auto) Neut # (Auto) Lymph # (Auto) Cottle # (Auto) Eos # (Auto) Baso # (Auto) Neutrophils % (Manual) Lymphocytes % (Manual) Monocytes % (Manual) Toxic Granulation Platelet Estimate Plt Clumps, EDTA Hypochromasia (manual) PT 10.7 INR 1.0 APTT 27.3 Sodium Potassium Chloride Carbon Dioxide Anion Gap BUN Creatinine Est GFR ( Amer) Est GFR (Non-Af Amer) POC Glucose (mg/dL) Random Glucose Calcium Iron TIBC % Saturation Total Bilirubin AST ALT Alkaline Phosphatase Total Protein Albumin Globulin Albumin/Globulin Ratio Urine Color Yellow Urine Clarity Slighty-cloudy Urine pH 6.0 Ur Specific [place] 1.013 Urine Protein >=500 Urine Glucose (UA) Neg Urine Ketones Negative Urine Blood Moderate Urine Nitrate Negative Urine Bilirubin Negative Urine Urobilinogen 0.2-1.0 Ur Leukocyte Esterase Neg Urine RBC (Auto) 27 H Urine Microscopic WBC 5 Ur Squamous Epith Cells < 1 Hyaline Casts 0-2 Blood Type O POSITIVE Antibody Screen Negative Crossmatch See Detail BBK History Checked Patient has bt 12/09/17 12/09/17 12/10/17 16:41 21:19 04:20 WBC 7.0 RBC 2.01 L Hgb 6.6 L Hct 19.0 L MCV 94.8 H MCH 33.1 H MCHC 34.9 RDW 13.3 Plt Count 284 MPV 7.8 Neut % (Auto) 81.5 H Lymph % (Auto) 9.9 L Cottle % (Auto) 7.8 Eos % (Auto) 0.2 Baso % (Auto) 0.6 Neut # (Auto) 5.7 Lymph # (Auto) 0.7 L Cottle # (Auto) 0.5 Eos # (Auto) 0.0 Baso # (Auto) 0.0 Neutrophils % (Manual) Lymphocytes % (Manual) Monocytes % (Manual) Toxic Granulation Platelet Estimate Plt Clumps, EDTA Hypochromasia (manual) PT INR APTT Sodium 139 Potassium 4.4 Chloride 108 H Carbon Dioxide 27 Anion Gap 8 L BUN 22 H Creatinine 1.4 Est GFR ( Amer) 59 Est GFR (Non-Af Amer) 49 POC Glucose (mg/dL) 158 H Random Glucose 157 H Calcium 10.0 Iron TIBC % Saturation Total Bilirubin AST ALT Alkaline Phosphatase Total Protein Albumin Globulin Albumin/Globulin Ratio Urine Color Urine Clarity Urine pH Ur Specific [place] Urine Protein Urine Glucose (UA) Urine Ketones Urine Blood Urine Nitrate Urine Bilirubin Urine Urobilinogen Ur Leukocyte Esterase Urine RBC (Auto) Urine Microscopic WBC Ur Squamous Epith Cells Hyaline Casts Blood Type Antibody Screen Crossmatch BBK History Checked 12/10/17 12/10/17 04:20 07:59 WBC 6.0 RBC 2.64 L Hgb 8.5 L Hct 24.4 L MCV 92.4 D MCH 32.1 H MCHC 34.7 RDW 14.4 Plt Count 256 MPV 8.3 Neut % (Auto) 72.9 Lymph % (Auto) 11.6 L Cottle % (Auto) 12.8 H Eos % (Auto) 2.1 Baso % (Auto) 0.6 Neut # (Auto) 4.4 Lymph # (Auto) 0.7 L Cottle # (Auto) 0.8 Eos # (Auto) 0.1 Baso # (Auto) 0.0 Neutrophils % (Manual) Lymphocytes % (Manual) Monocytes % (Manual) Toxic Granulation Platelet Estimate Plt Clumps, EDTA Hypochromasia (manual) PT INR APTT Sodium Potassium Chloride Carbon Dioxide Anion Gap BUN Creatinine Est GFR ( Amer) Est GFR (Non-Af Amer) POC Glucose (mg/dL) Random Glucose Calcium Iron 69 TIBC 308 % Saturation 22 Total Bilirubin AST ALT Alkaline Phosphatase Total Protein Albumin Globulin Albumin/Globulin Ratio Urine Color Urine Clarity Urine pH Ur Specific [place] Urine Protein Urine Glucose (UA) Urine Ketones Urine Blood Urine Nitrate Urine Bilirubin Urine Urobilinogen Ur Leukocyte Esterase Urine RBC (Auto) Urine Microscopic WBC Ur Squamous Epith Cells Hyaline Casts Blood Type Antibody Screen Crossmatch BBK History Checked Assessment & Plan - Assessment and Plan (Free Text) Assessment: impression; Rectal bleeding secondary to the RT for prostate cancer.? recurrent colon ancer Plan: Plan Have ordered tests will follow as out pt. suggest GI eval. - Date & Time Date: 12/10/17 Time: 08:52
[2017-12-10 08:47] LABS: FERRITIN 42.7 ng/Ml (17.9-464)
[2017-12-10 12:15] VITALS: BP 120/54; PULSE 64; TEMP 98.3
== END 2017-12-10 13:21 | disposition home or self-care (01) | DRG 812 ==
LOC: H.ER 11:27 → H.ERHOLD 13:01 → H.TEL 16:17
PROVIDERS: ADMIT Internal Medicine; ATTEND Internal Medicine
PROC: 30233N1 Transfusion of Nonautologous Red Blood Cells into Peripheral Vein, Percutaneous Approach (ICD-10-PCS; principal; 2017-12-09)
DX: D62 Acute posthemorrhagic anemia (principal); K62.7 Radiation proctitis; I10 Essential (primary) hypertension; E11.9 Type 2 diabetes mellitus without complications; Z86.73 Personal history of transient ischemic attack (TIA), and cerebral infarction without residual deficits; Z92.3 Personal history of irradiation; Z87.891 Personal history of nicotine dependence; Z85.038 Personal history of other malignant neoplasm of large intestine; Z85.46 Personal history of malignant neoplasm of prostate; Y84.2 Radiological procedure and radiotherapy as the cause of abnormal reaction of the patient, or of later complication, without mention of misadventure at the time of the procedure; K59.00 Constipation, unspecified; D63.8 Anemia in other chronic diseases classified elsewhere

== ENCOUNTER 2018-05-12 10:11 | Inpatient (IN) | payer MEDICARE, OTHER ==
[2018-05-12 10:15] VITALS: BMI 29.7
--- NOTE | 2018-05-12 12:24 | ED PDOC ---
HPI: Abdomen Time Seen by Provider: 05/12/18 10:57 Chief Complaint (Nursing): GI Problem Chief Complaint (Provider): Rectal bleed History Per: Patient History/Exam Limitations: no limitations Onset/Duration Of Symptoms: Persistent Outside of [place] travel?: No Current Symptoms Are (Timing): Still Present Additional History Per: Patient Additional Complaint(s): 83yo male, with distant history of colon cancer and subsequent surgery, prostate cancer (chemotherapy 1 year ago), hypertension, diabetes, hypercholesterolemia, CVA, comes to ER for evaluation due to worsening rectal bleeding. Patient states he has headache chronic rectal bleeding since completing his chemotherapy 1 year ago, and states the bleeding has worsened. He was in his PMD's office today for lab results, and was informed he had anemia and acute renal failure; patient was instructed to come to ER for further evaluation. He otherwise denies any fever, chills, weakness, lightheadedness, dizziness, shortness of breath or chest pain. No additional complaints. PMD: Dr. Watts Past Medical History Reviewed: Historical Data, Nursing Documentation, Vital Signs Vital Signs: Last Vital Signs Temp 98 F 05/12/18 10:15 Pulse 78 05/12/18 10:15 Resp 20 05/12/18 10:15 BP 137/63 05/12/18 10:15 Pulse Ox 97 05/12/18 10:15 - Medical History PMH: HTN, Hypercholesterolemia, Malignancy (colon cancer, prostate cancer), Chronic Kidney Disease Denies: Asthma, HIV - Surgical History Other surgeries: "surgery for colon cancer" - Family History Family History: States: No Known Family Hx - Home Medications Home Medications: Ambulatory Orders Medication Instructions Recorded RX: Enalapril/Hydrochlorothiazide 1 tab PO DAILY #30 tablet 12/10/17 [Enalapril-Hctz 10-25 mg Tablet] RX: Finasteride [Proscar] 5 mg PO DAILY #30 tab 12/10/17 RX: Folic Acid 1 mg PO DAILY #30 tab 12/10/17 RX: amLODIPine [Norvasc] 10 mg PO DAILY #30 tab 12/10/17 Furosemide [Lasix] 40 mg PO DAILY 05/12/18 Glipizide [Glipizide ER] 10 mg PO BID 05/12/18 RX: Bicalutamide [Casodex] 50 mg PO DAILY 05/12/18 RX: Ferrous Sulfate [Feosol] 325 mg PO DAILY 05/12/18 RX: Sitagliptin Phos/Metformin HCl 1 tab PO BID 05/12/18 [Janumet 50-1,000 mg Tablet] RX: Spironolactone [Aldactone] 50 mg PO DAILY 05/12/18 RX: Tamsulosin HCl [Flomax] 0.8 mg PO DAILY 05/12/18 - Allergies Allergies/Adverse Reactions: Allergies Allergy/AdvReac Type Severity Reaction Status Date / Time pollen extracts Allergy SHORTNESS Verified 05/12/18 10:25 OF BREATH Review of Systems ROS Statement: Except As Marked, All Systems Reviewed And Found Negative Constitutional: Negative for: Fever, Chills Cardiovascular: Negative for: Chest Pain, Light Headedness Respiratory: Negative for: Shortness of Breath Gastrointestinal: Positive for: Hematochezia. Negative for: Abdominal Pain, Diarrhea Neurological: Negative for: Dizziness Physical Exam - Reviewed Nursing Documentation Reviewed: Yes Vital Signs Reviewed: Yes - Physical Exam Appears: Positive for: Non-toxic, No Acute Distress Head Exam: Positive for: ATRAUMATIC, NORMAL INSPECTION, NORMOCEPHALIC Skin: Positive for: Normal Color, Warm Eye Exam: Positive for: Normal appearance, EOMI, PERRL Neck: Positive for: Normal, Supple Cardiovascular/Chest: Positive for: Regular Rate, Rhythm Respiratory: Positive for: Normal Breath Sounds Gastrointestinal/Abdominal: Positive for: Normal Exam, Soft. Negative for: Tenderness Back: Positive for: Normal Inspection Rectal: Positive for: Blood Streaked Stool Extremity: Positive for: Normal ROM. Negative for: Pedal Edema Neurologic/Psych: Positive for: Alert, Oriented. Negative for: Motor/Sensory Deficits - Laboratory Results Result Diagrams: 05/12/18 12:15 05/12/18 12:15 - ECG O2 Sat by Pulse Oximetry: 97 (RA) Pulse Ox Interpretation: Normal Medical Decision Making Medical Decision Making: Impression: 83yo male w/ rectal bleeding Plan: -- Guiac stool -- Labs -- Chest x-ray 1230 Stool guiac test negative Chest x-ray FINDINGS: LINES AND TUBES: None. LUNG AND PLEURA: The lungs are hyperinflated and there is peribronchial thickening with chronic changes in both lungs. No focal consolidation. No pleural effusion or pneumothorax. HEART AND MEDIASTINUM: The heart is not enlarged. There are aortic atherosclerotic calcifications present. The hilar and mediastinal contours are within normal limits. SKELETAL STRUCTURES: The bony structures are within normal limits for the patient's age. VISUALIZED UPPER ABDOMEN: Normal. OTHER FINDINGS: None. IMPRESSION: No active pulmonary disease. COPD. 1405 Labs reviewed, patient with HGB level of 7.3 1420 Patient with renal insufficiency; urinalysis ordered Creatinine level from prior visit noted to be 1.4; current level is 2.4 GI and Renal consult placed protonix ordered guainc positive [address] Pablo, hospitalist, who accepts patient for admission. Plan for admission discussed with patient, who is agreeable. 1530 Need for blood transfusion, including risks and benefits discussed with patient, who is agreeable. Written consent obtained. pt comfortable, with stable vitals and no active bleeding Scribe Attestation: Documented by Bekah Rodriguez acting as a scribe for Thaddeus Rodriguez MD. Provider Attestation: All medical record entries made by the Scribe were at my direction and personally dictated by me. I have reviewed the chart and agree that the record accurately reflects my personal performance of the history, physical exam, medical decision making, and the department course for this patient. I have also personally directed, reviewed, and agree with the discharge instructions and disposition. Disposition - Clinical Impression Clinical Impression: Gastrointestinal hemorrhage, Renal insufficiency - Patient ED Disposition Is Patient to be Admitted: Yes - Disposition Disposition Time: 15:30 Condition: FAIR
[2018-05-12 12:29] LABS: BASO % 0.7 % (0.0-2.0); EOS # 0.1 K/uL (0.0-0.7); EOS % 2.4 % (0.0-4.0); HEMOGLOBIN 7.3 g/dL (12.0-18.0); LYMPH # 0.7 K/uL (1.0-4.3); MEAN CELL VOLUME 92.3 fl (80.0-94.0); MEAN CORPUSCULAR HEMOGLOBIN 31.5 pg (27.0-31.0); MEAN CORPUSCULAR HGB CONC 34.1 g/dL (33.0-37.0); MEAN PLATELET VOLUME 9.4 fl (7.2-11.7); MONO # 0.6 K/uL (0.0-0.8); MONO % 10.8 % (0.0-10.0); NEUT # 3.7 K/uL (1.8-7.0); NEUT % 72.1 % (50.0-75.0); NRBC % 0.1 % (0.0-0.0); RBC 2.31 Mil/uL (4.40-5.90); RED CELL DISTRIBUTION WIDTH 13.6 % (11.5-14.5); WHITE BLOOD COUNT 5.2 K/uL (4.8-10.8)
[2018-05-12 12:42] LABS: ALB/GLOB RATIO 1.3 (1.0-2.1); ALBUMIN 3.9 g/dL (3.5-5.0); CALCIUM 10.6 mg/dL (8.4-10.2)
--- NOTE | 2018-05-12 12:59 | RAD ---
Date of service: 05/12/2018 HISTORY: Rectal bleeding COMPARISON: 12/09/2017 TECHNIQUE: Chest PA and lateral FINDINGS: LINES AND TUBES: None. LUNG AND PLEURA: The lungs are hyperinflated and there is peribronchial thickening with chronic changes in both lungs. No focal consolidation. No pleural effusion or pneumothorax. HEART AND MEDIASTINUM: The heart is not enlarged. There are aortic atherosclerotic calcifications present. The hilar and mediastinal contours are within normal limits. SKELETAL STRUCTURES: The bony structures are within normal limits for the patient's age. VISUALIZED UPPER ABDOMEN: Normal. OTHER FINDINGS: None. IMPRESSION: No active pulmonary disease. COPD.
--- NOTE | 2018-05-12 15:23 | CP.PCM.HP ---
<Che Ramsey - Last Filed: 05/12/18 16:05> History of Present Illness - History of Present Illness History of Present Illness: 83 y/o male w/ pmhx of colon cancer (2007), prostate cancer (2018), stroke, DM2, and HTN who was sent from PMD's (Dr. Watts) office after being found to have low hemoglobin and reduced kidney function. He c/o fatigue but denies dizziness, chest pain, SOB, nausea, vomiting. He reports history of persistent rectal bleeding, which started months ago after receiving radiation therapy for prostate cancer. His last BM was yesterday; showed bright red blood. Last c ol[facility]oscopy was January 2019 in [facility], which showed "bleeding vein and they stopped it." PMD: Dr. Watts Specialist: Dr. Nichols (Urologist), Dr. Verdin (Onc - Colon Ca 2007) PMHx: Colon Cancer (2007), prostate cancer (2018), stroke, DM2, HTN SurgHx: colon cancer - unsure of exact procedure FMhx: unkown SocHx: denies etoh, tobacco, elicit drugs Allergies: NKDA Code status: Full code Present on Admission - Present on Admission Any Indicators Present on Admission: No History of DVT/PE: No History of Uncontrolled Diabetes: No Urinary Catheter: No Decubitus Ulcer Present: No Review of Systems - Review of Systems All systems: reviewed and no additional remarkable complaints except - Constitutional Constitutional: Fatigue - Cardiovascular Cardiovascular: absent: Chest Pain, Edema, Palpitations - Gastrointestinal Gastrointestinal: Hematochezia. absent: Diarrhea, Nausea, Vomiting - Genitourinary Genitourinary: absent: Dysuria Past Patient History - Past Medical History & Family History Past Medical History?: Yes - Past Social History Smoking Status: Former Smoker - CARDIAC Hx Hypercholesterolemia: Yes Hx Hypertension: Yes - PULMONARY Hx Asthma: No - NEUROLOGICAL Hx Neurological Disorder: No - HEENT Hx HEENT Problems: No - RENAL Hx Chronic Kidney Disease: Yes - ENDOCRINE/METABOLIC Hx Endocrine Disorders: Yes Hx Diabetes Mellitus Type 2: Yes - HEMATOLOGICAL/ONCOLOGICAL Hx Human Immunodeficiency Virus (HIV): No - INTEGUMENTARY Hx Dermatological Problems: No - MUSCULOSKELETAL/RHEUMATOLOGICAL Hx Musculoskeletal Disorders: No Hx Falls: No - GASTROINTESTINAL Hx Gastrointestinal Disorders: No - GENITOURINARY/GYNECOLOGICAL Hx Genitourinary Disorders: Yes Hx Prostate Cancer: Yes - PSYCHIATRIC Hx Psychophysiologic Disorder: No Hx Substance Use: No - SURGICAL HISTORY Hx Surgeries: Yes Other/Comment: bowel surgery, left knee - ANESTHESIA Hx Anesthesia: Yes Hx Anesthesia Reactions: No Meds Allergies/Adverse Reactions: Allergies Allergy/AdvReac Type Severity Reaction Status Date / Time pollen extracts Allergy SHORTNESS Verified 05/12/18 10:25 OF BREATH Physical Exam - Constitutional Appears: No Acute Distress - Head Exam Head Exam: NORMAL INSPECTION - Eye Exam Eye Exam: Normal appearance Pupil Exam: PERRL - ENT Exam ENT Exam: Mucous Membranes Moist - Respiratory Exam Respiratory Exam: Clear to Auscultation Bilateral, NORMAL BREATHING PATTERN - Cardiovascular Exam Cardiovascular Exam: REGULAR RHYTHM, +S1, +S2 - GI/Abdominal Exam GI & Abdominal Exam: Normal Bowel Sounds. absent: Distended, Tenderness - Extremities Exam Extremities exam: Positive for: normal inspection. Negative for: pedal edema, tenderness - Neurological Exam Neurological exam: Alert - Psychiatric Exam Psychiatric exam: Normal Affect - Skin Skin Exam: Dry, Warm Results - Vital Signs Recent Vital Signs: Last Vital Signs Temp 98 F 05/12/18 10:15 Pulse 78 05/12/18 10:15 Resp 20 05/12/18 10:15 BP 137/63 05/12/18 10:15 Pulse Ox 97 05/12/18 14:32 - Labs Result Diagrams: 05/12/18 12:15 05/12/18 12:15 Labs: Laboratory Results - last 24 hr 05/12/18 05/12/18 05/12/18 11:58 12:15 12:15 WBC 5.2 RBC 2.31 L Hgb 7.3 L Hct 21.3 L MCV 92.3 MCH 31.5 H MCHC 34.1 RDW 13.6 Plt Count 254 MPV 9.4 Neut % (Auto) 72.1 Lymph % (Auto) 14.0 L Thomas % (Auto) 10.8 H Eos % (Auto) 2.4 Baso % (Auto) 0.7 Neut # (Auto) 3.7 Lymph # (Auto) 0.7 L Thomas # (Auto) 0.6 Eos # (Auto) 0.1 Baso # (Auto) 0.0 PT INR Sodium 138 Potassium 4.1 Chloride 102 Carbon Dioxide 22 Anion Gap 18 BUN 48 H Creatinine 2.4 H Est GFR ( Amer) 31 Est GFR (Non-Af Amer) 26 Random Glucose 180 H Calcium 10.6 H Total Bilirubin 0.3 AST 20 ALT 19 L Alkaline Phosphatase 51 Total Protein 6.8 Albumin 3.9 Globulin 2.9 Albumin/Globulin Ratio 1.3 Stool Occult Blood Positive H Blood Type Antibody Screen BBK History Checked 05/12/18 05/12/18 12:15 12:15 WBC RBC Hgb Hct MCV MCH MCHC RDW Plt Count MPV Neut % (Auto) Lymph % (Auto) Thomas % (Auto) Eos % (Auto) Baso % (Auto) Neut # (Auto) Lymph # (Auto) Thomas # (Auto) Eos # (Auto) Baso # (Auto) PT 11.0 INR 1.0 Sodium Potassium Chloride Carbon Dioxide Anion Gap BUN Creatinine Est GFR ( Amer) Est GFR (Non-Af Amer) Random Glucose Calcium Total Bilirubin AST ALT Alkaline Phosphatase Total Protein Albumin Globulin Albumin/Globulin Ratio Stool Occult Blood Blood Type O POSITIVE Antibody Screen Negative BBK History Checked Patient has bt Assessment & Plan - Assessment and Plan (Free Text) Assessment: 83 y/o male w/ pmhx of colon cancer (2008), prostate cancer (2018), stroke, DM2, and HTN admitted w/ LLOYD on CKD and anemia 2/2 to GIB. Anemia likely 2/2 GIB Admit to telemetry hgb 7.2 transfuse 1 unit PRBC FOBT positive in ER Gasteroenterology consulted; appreciate recs Protonix 40mg IV QD follow up H/H Acute on Chronic Kidney Disease Likely multi-factorial Nephrology consulted; appreciate recommendations IV fluid hydration D5W w/ 0.45%NS + 20 mEq KCl- trend bmp Hold nephrotoxic agents Hx of HTN Chronic. Controlled. Will hold BP meds for now monitor BP Hx of DM Chronic. Controlled. Hold metformin Coverage scale in place Monitor for hypoglycemia Will f/u [id number] Hx of BPH Cont. home med, flomax Diet: NPO DVT prophylaxis SCDs Code Status Full Code Decision To Admit - Pt Status Changed To: Hospital Disposition Of: Inpatient - Admit Certification Admit to Inpatient:: After my assessment, the patient will require hospitalization for at least two midnights. This is because of the severity of symptoms shown, intensity of services needed, and/or the medical risk in this patient being treated as an outpatient. - . Bed Request Type: Telemetry Admitting Physician: Tonie Pablo <Tonie Pablo - Last Filed: 05/14/18 16:40> Results - Vital Signs Recent Vital Signs: Last Vital Signs Temp 98.6 F 05/14/18 12:39 Pulse 70 05/14/18 12:39 Resp 18 05/14/18 12:39 BP 167/73 H 05/14/18 12:39 Pulse Ox 97 05/14/18 12:39 - Labs Result Diagrams: 05/14/18 06:00 05/14/18 06:00 Labs: Laboratory Results - last 24 hr 05/12/18 05/13/18 05/13/18 12:15 14:30 21:30 WBC RBC Hgb Hct MCV MCH MCHC RDW Plt Count MPV Neut % (Auto) Lymph % (Auto) Thomas % (Auto) Eos % (Auto) Baso % (Auto) Neut # (Auto) Lymph # (Auto) Thomas # (Auto) Eos # (Auto) Baso # (Auto) Sodium Potassium Chloride Carbon Dioxide Anion Gap BUN Creatinine Est GFR ( Amer) Est GFR (Non-Af Amer) POC Glucose (mg/dL) 150 H Random Glucose Calcium Phosphorus 3.9 Magnesium Total Bilirubin AST ALT Alkaline Phosphatase Total Protein Albumin Globulin Albumin/Globulin Ratio Blood Type O POSITIVE Antibody Screen Negative Crossmatch See Detail BBK History Checked Patient has bt 05/14/18 05/14/18 05/14/18 05:35 06:00 06:00 WBC 5.7 RBC 3.31 L Hgb 10.3 L D Hct 29.9 L MCV 90.5 MCH 31.2 H MCHC 34.4 RDW 13.6 Plt Count 211 MPV 9.2 Neut % (Auto) 74.8 Lymph % (Auto) 12.1 L Thomas % (Auto) 10.0 Eos % (Auto) 2.6 Baso % (Auto) 0.5 Neut # (Auto) 4.3 Lymph # (Auto) 0.7 L Thomas # (Auto) 0.6 Eos # (Auto) 0.1 Baso # (Auto) 0.0 Sodium 136 Potassium 3.9 Chloride 102 Carbon Dioxide 22 Anion Gap 16 BUN 46 H Creatinine 2.4 H Est GFR ( Amer) 31 Est GFR (Non-Af Amer) 26 POC Glucose (mg/dL) 192 H Random Glucose 201 H Calcium 9.9 Phosphorus 3.9 Magnesium 2.1 Total Bilirubin 0.9 AST 18 ALT 15 L D Alkaline Phosphatase 50 Total Protein 6.4 Albumin 3.5 Globulin 2.9 Albumin/Globulin Ratio 1.2 Blood Type Antibody Screen Crossmatch BBK History Checked 05/14/18 10:45 WBC RBC Hgb Hct MCV MCH MCHC RDW Plt Count MPV Neut % (Auto) Lymph % (Auto) Thomas % (Auto) Eos % (Auto) Baso % (Auto) Neut # (Auto) Lymph # (Auto) Thomas # (Auto) Eos # (Auto) Baso # (Auto) Sodium Potassium Chloride Carbon Dioxide Anion Gap BUN Creatinine Est GFR ( Amer) Est GFR (Non-Af Amer) POC Glucose (mg/dL) 238 H Random Glucose Calcium Phosphorus Magnesium Total Bilirubin AST ALT Alkaline Phosphatase Total Protein Albumin Globulin Albumin/Globulin Ratio Blood Type Antibody Screen Crossmatch BBK History Checked Attending/Attestation - Attestation I have personally seen and examined this patient.: Yes I have fully participated in the care of the patient.: Yes I have reviewed all pertinent clinical information: Yes Notes (Text): 05/14/18 16:40 agree with findings and plan as above.
[2018-05-12] MEDS ORDERED: Dextrose 50% SYRINGE Inj (50 ml) IV PRN (15:31)
[2018-05-12] MEDS ORDERED: Glucagon Recombinant 1 mg Inj IM PRN (15:31)
[2018-05-12] MEDS ORDERED: Dextrose 50% SYRINGE Inj (50 ml) IVP ONE (15:58)
[2018-05-12] MEDS ORDERED: Dextrose 50% SYRINGE Inj (50 ml) ONE (15:59)
[2018-05-12] MEDS ORDERED: Dextrose 5%/0.45% NS 1,000 ML IV SCH (16:00)
[2018-05-12] MEDS ORDERED: GlipiZIDE 10 mg SR Tab PO SCH (17:00)
[2018-05-12] MEDS ORDERED: Pneumococcal 23-Valent Vaccine IM ONE (17:22)
[2018-05-12 17:23] LABS: SQUAMOUS EPITHIAL < 1 /hpf (0-5); URINE BILIRUBIN NEGATIVE (NEGATIVE); URINE BLOOD MODERATE (NEGATIVE); URINE COLOR YELLOW (YELLOW); URINE GLUCOSE (UA) 50 mg/dL (NEGATIVE); URINE LEUKOCYTE ESTERASE NEG Leu/uL (Negative); URINE PROTEIN 100 mg/dL (NEGATIVE); URINE UROBILINOGEN 0.2-1.0 mg/dL (0.2-1.0)
[2018-05-12 17:27] LABS: URINE CLARITY SLIGHTLY CLOUDY (Clear)
[2018-05-12] MEDS ORDERED: Influenza Vaccine (5 YR UP)/PF 60 MCG/0.5 ML SYR IM ONE (17:41)
[2018-05-12] MEDS: Insulin Regular 100 units/ml SC SCH ×2 (17:41→21:38)
[2018-05-12] MEDS ORDERED: Influenza Vaccine 60 mcg/0.5 mL SYR (4YR UP) IM ONE (18:45)
[2018-05-12] MEDS: Potassium Ch 20mEq in D5-1/2NS 1,000 ML IV SCH (22:36)
[2018-05-13] MEDS: Potassium Ch 20mEq in D5-1/2NS 1,000 ML IV SCH (04:34)
[2018-05-13 05:43] LABS: HEMOGLOBIN 8.3 g/dL (12.0-18.0); MEAN CORPUSCULAR HEMOGLOBIN 30.8 pg (27.0-31.0); MEAN CORPUSCULAR HGB CONC 33.9 g/dL (33.0-37.0); RBC 2.69 Mil/uL (4.40-5.90); RED CELL DISTRIBUTION WIDTH 13.7 % (11.5-14.5); WHITE BLOOD COUNT 5.3 K/uL (4.8-10.8)
[2018-05-13 05:53] LABS: CALCIUM 10.6 mg/dL (8.4-10.2)
[2018-05-13 05:54] LABS: IRON 78 ug/dL (49-181)
[2018-05-13 06:04] LABS: % IRON SATURATION 26 % (20-55); TOTAL IRON BINDING CAPACITY 303 ug/dL (250-450)
[2018-05-13 06:28] LABS: FERRITIN 25.2 ng/Ml (17.9-464)
[2018-05-13] MEDS: Insulin Regular 100 units/ml SC SCH ×4 (06:36→23:21)
--- NOTE | 2018-05-13 08:50 | CP.PCM.CON ---
History of Present Illness - History of Present Illness History of Present Illness: 83 yo male admitted with rectal bleeding and anemia. H/o prostate cancer and radiation. Had an episode of bleeding January 2018 apparently treated endoscopically. Review of Systems - Constitutional Constitutional: absent: Chills - EENT Eyes: absent: Blurred Vision Nose/Mouth/Throat: absent: Nasal Congestion - Gastrointestinal Gastrointestinal: As Per HPI - Genitourinary Genitourinary: absent: Change in Urinary Stream Past Patient History - Past Medical History & Family History Past Medical History?: Yes - Past Social History Smoking Status: Former Smoker - CARDIAC Hx Hypercholesterolemia: Yes Hx Hypertension: Yes - PULMONARY Hx Asthma: No - NEUROLOGICAL Hx Neurological Disorder: No - HEENT Hx HEENT Problems: No - RENAL Hx Chronic Kidney Disease: Yes - ENDOCRINE/METABOLIC Hx Endocrine Disorders: Yes - HEMATOLOGICAL/ONCOLOGICAL Hx Human Immunodeficiency Virus (HIV): No - INTEGUMENTARY Hx Dermatological Problems: No - MUSCULOSKELETAL/RHEUMATOLOGICAL Hx Musculoskeletal Disorders: No Hx Falls: No - GASTROINTESTINAL Hx Gastrointestinal Disorders: No - GENITOURINARY/GYNECOLOGICAL Hx Genitourinary Disorders: Yes - PSYCHIATRIC Hx Psychophysiologic Disorder: No Hx Substance Use: No - SURGICAL HISTORY Hx Surgeries: Yes Other/Comment: bowel surgery, left knee - ANESTHESIA Hx Anesthesia: Yes Hx Anesthesia Reactions: No Meds Allergies/Adverse Reactions: Allergies Allergy/AdvReac Type Severity Reaction Status Date / Time pollen extracts Allergy SHORTNESS Verified 05/12/18 10:25 OF BREATH - Medications Medications: Current Medications Dextrose (Dextrose 50% Inj) 0 ml IV STAT PRN; Protocol PRN Reason: Hypoglycemia Protocol Dextrose (Glutose 15) 0 gm PO ONCE PRN; Protocol PRN Reason: Hypoglycemia Protocol Finasteride (Proscar) 5 mg PO DAILY [facility] Folic Acid (Folic Acid) 1 mg PO DAILY [facility] Glucagon (Glucagen Diagnostic Kit) 0 mg IM STAT PRN; Protocol PRN Reason: Hypoglycemia Protocol Potassium Chloride/Dextrose/Sod Cl (Potassium Chl 20 Meq In D5-1/2ns) 1,000 mls @ 120 mls/hr IV .Q8H20M [facility] Last Admin: 05/13/18 04:34 Dose: Not Given Insulin Human Regular (Humulin R) 0 units SC [facility]; Protocol Last Admin: 05/13/18 06:36 Dose: Not Given Pantoprazole Sodium (Protonix Inj) 40 mg IVP DAILY [facility] Tamsulosin HCl (Flomax) 0.8 mg PO DAILY [facility] Physical Exam - Constitutional Appears: No Acute Distress - Head Exam Head Exam: ATRAUMATIC - Eye Exam Eye Exam: Normal appearance - ENT Exam ENT Exam: Mucous Membranes Moist - Respiratory Exam Respiratory Exam: Clear to Auscultation Bilateral - Cardiovascular Exam Cardiovascular Exam: REGULAR RHYTHM, +S1, +S2 - GI/Abdominal Exam GI & Abdominal Exam: Normal Bowel Sounds, Soft. absent: Tenderness Results - Vital Signs Recent Vital Signs: Last Vital Signs Temp 98 F 05/13/18 08:29 Pulse 63 05/13/18 08:29 Resp 18 05/13/18 08:29 BP 144/57 L 05/13/18 08:29 Pulse Ox 99 05/13/18 08:29 - Labs Result Diagrams: 05/13/18 04:30 05/13/18 04:30 Labs: Laboratory Results - last 24 hr 05/12/18 05/12/18 05/12/18 11:58 12:15 12:15 WBC 5.2 RBC 2.31 L Hgb 7.3 L Hct 21.3 L MCV 92.3 MCH 31.5 H MCHC 34.1 RDW 13.6 Plt Count 254 MPV 9.4 Neut % (Auto) 72.1 Lymph % (Auto) 14.0 L [place] % (Auto) 10.8 H Eos % (Auto) 2.4 Baso % (Auto) 0.7 Neut # (Auto) 3.7 Lymph # (Auto) 0.7 L [place] # (Auto) 0.6 Eos # (Auto) 0.1 Baso # (Auto) 0.0 PT INR Sodium 138 Potassium 4.1 Chloride 102 Carbon Dioxide 22 Anion Gap 18 BUN 48 H Creatinine 2.4 H Est GFR ( Amer) 31 Est GFR (Non-Af Amer) 26 POC Glucose (mg/dL) Random Glucose 180 H Calcium 10.6 H Iron TIBC % Saturation Ferritin Total Bilirubin 0.3 AST 20 ALT 19 L Alkaline Phosphatase 51 Total Protein 6.8 Albumin 3.9 Globulin 2.9 Albumin/Globulin Ratio 1.3 Urine Color Urine Clarity Urine pH Ur Specific [place] Urine Protein Urine Glucose (UA) Urine Ketones Urine Blood Urine Nitrate Urine Bilirubin Urine Urobilinogen Ur Leukocyte Esterase Urine RBC (Auto) Urine Microscopic WBC Ur Squamous Epith Cells Stool Occult Blood Positive H Blood Type Antibody Screen Crossmatch BBK History Checked 05/12/18 05/12/18 05/12/18 12:15 12:15 15:43 WBC RBC Hgb Hct MCV MCH MCHC RDW Plt Count MPV Neut % (Auto) Lymph % (Auto) [place] % (Auto) Eos % (Auto) Baso % (Auto) Neut # (Auto) Lymph # (Auto) [place] # (Auto) Eos # (Auto) Baso # (Auto) PT 11.0 INR 1.0 Sodium Potassium Chloride Carbon Dioxide Anion Gap BUN Creatinine Est GFR ( Amer) Est GFR (Non-Af Amer) POC Glucose (mg/dL) 52 L Random Glucose Calcium Iron TIBC % Saturation Ferritin Total Bilirubin AST ALT Alkaline Phosphatase Total Protein Albumin Globulin Albumin/Globulin Ratio Urine Color Urine Clarity Urine pH Ur Specific [place] Urine Protein Urine Glucose (UA) Urine Ketones Urine Blood Urine Nitrate Urine Bilirubin Urine Urobilinogen Ur Leukocyte Esterase Urine RBC (Auto) Urine Microscopic WBC Ur Squamous Epith Cells Stool Occult Blood Blood Type O POSITIVE Antibody Screen Negative Crossmatch See Detail BBK History Checked Patient has bt 05/12/18 05/12/18 05/12/18 16:15 16:56 21:10 WBC RBC Hgb Hct MCV MCH MCHC RDW Plt Count MPV Neut % (Auto) Lymph % (Auto) [place] % (Auto) Eos % (Auto) Baso % (Auto) Neut # (Auto) Lymph # (Auto) [place] # (Auto) Eos # (Auto) Baso # (Auto) PT INR Sodium Potassium Chloride Carbon Dioxide Anion Gap BUN Creatinine Est GFR ( Amer) Est GFR (Non-Af Amer) POC Glucose (mg/dL) 216 H 71 Random Glucose Calcium Iron TIBC % Saturation Ferritin Total Bilirubin AST ALT Alkaline Phosphatase Total Protein Albumin Globulin Albumin/Globulin Ratio Urine Color Yellow Urine Clarity Slightly cloudy Urine pH 6.0 Ur Specific [place] 1.011 Urine Protein 100 Urine Glucose (UA) 50 Urine Ketones Negative Urine Blood Moderate Urine Nitrate Negative Urine Bilirubin Negative Urine Urobilinogen 0.2-1.0 Ur Leukocyte Esterase Neg Urine RBC (Auto) 9 H Urine Microscopic WBC 3 Ur Squamous Epith Cells < 1 Stool Occult Blood Blood Type Antibody Screen Crossmatch BBK History Checked 05/12/18 05/13/18 05/13/18 22:49 04:30 04:30 WBC 5.3 RBC 2.69 L Hgb 8.3 L Hct 24.5 L MCV 91.0 MCH 30.8 MCHC 33.9 RDW 13.7 Plt Count 237 MPV Neut % (Auto) Lymph % (Auto) [place] % (Auto) Eos % (Auto) Baso % (Auto) Neut # (Auto) Lymph # (Auto) [place] # (Auto) Eos # (Auto) Baso # (Auto) PT INR Sodium 138 Potassium 4.7 Chloride 103 Carbon Dioxide 24 Anion Gap 16 BUN 39 H Creatinine 2.2 H Est GFR ( Amer) 35 Est GFR (Non-Af Amer) 29 POC Glucose (mg/dL) 120 H Random Glucose 171 H Calcium 10.6 H Iron TIBC % Saturation Ferritin 25.2 Total Bilirubin AST ALT Alkaline Phosphatase Total Protein Albumin Globulin Albumin/Globulin Ratio Urine Color Urine Clarity Urine pH Ur Specific [place] Urine Protein Urine Glucose (UA) Urine Ketones Urine Blood Urine Nitrate Urine Bilirubin Urine Urobilinogen Ur Leukocyte Esterase Urine RBC (Auto) Urine Microscopic WBC Ur Squamous Epith Cells Stool Occult Blood Blood Type Antibody Screen Crossmatch BBK History Checked 05/13/18 05/13/18 04:30 05:17 WBC RBC Hgb Hct MCV MCH MCHC RDW Plt Count MPV Neut % (Auto) Lymph % (Auto) [place] % (Auto) Eos % (Auto) Baso % (Auto) Neut # (Auto) Lymph # (Auto) [place] # (Auto) Eos # (Auto) Baso # (Auto) PT INR Sodium Potassium Chloride Carbon Dioxide Anion Gap BUN Creatinine Est GFR ( Amer) Est GFR (Non-Af Amer) POC Glucose (mg/dL) 176 H Random Glucose Calcium Iron 78 TIBC 303 % Saturation 26 Ferritin Total Bilirubin AST ALT Alkaline Phosphatase Total Protein Albumin Globulin Albumin/Globulin Ratio Urine Color Urine Clarity Urine pH Ur Specific [place] Urine Protein Urine Glucose (UA) Urine Ketones Urine Blood Urine Nitrate Urine Bilirubin Urine Urobilinogen Ur Leukocyte Esterase Urine RBC (Auto) Urine Microscopic WBC Ur Squamous Epith Cells Stool Occult Blood Blood Type Antibody Screen Crossmatch BBK History Checked Assessment & Plan (1) Gastrointestinal hemorrhage Assessment and Plan: Rectal bleeding in patient with h/o prostate radiation. R/o radiation proctitis. Will do flex sig today. DDAVP dose. Status: Acute
[2018-05-13] MEDS ORDERED: Desmopressin 4 mcg/ml Inj (1 ml) IVPB ONE (09:15)
--- NOTE | 2018-05-13 12:33 | CP.PCM.CON ---
History of Present Illness - History of Present Illness History of Present Illness: This 83 years of age male admitted with rectal bleeding I was called to see this patient for abnormal kidney function. History was taken from the daughter at the bedside and also from the patient. She denies history of cancer of the prostate and he has been receiving treatment including radiation therapy has completed several months ago presented with this severe anemia and rectal bleeding also has a previous history of colon cancer 2008 with some surgery at the time. PMHx: Colon Cancer (2008), prostate cancer (2018), stroke, DM2, HTN SurgHx: colon cancer - unsure of exact procedure FMhx: unkown SocHx: denies etoh, tobacco, elicit drugs Allergies: NKDA Review of Systems - Constitutional Constitutional: Anorexia. absent: Chills - EENT Eyes: absent: Exophthalmos Nose/Mouth/Throat: As Per HPI - Cardiovascular Cardiovascular: absent: Acrocyanosis, Chest Pain at Rest, Leg Edema - Respiratory Respiratory: absent: Cough, Dyspnea, Hemoptysis, Chest Congestion - Gastrointestinal Gastrointestinal: Abdominal Pain, Melena. absent: Coffee Ground Emesis - Genitourinary Genitourinary: Nocturia - Musculoskeletal Musculoskeletal: As Per HPI, Back Pain. absent: Muscle Weakness - Neurological Neurological: absent: Confusion, Focal Weakness - Psychiatric Psychiatric: As Per HPI - Endocrine Endocrine: Fatigue - Hematologic/Lymphatic Hematologic: absent: Easy Bleeding Past Patient History - Past Medical History & Family History Past Medical History?: Yes - Past Social History Smoking Status: Former Smoker - CARDIAC Hx Hypercholesterolemia: Yes Hx Hypertension: Yes - PULMONARY Hx Asthma: No - NEUROLOGICAL Hx Neurological Disorder: No - HEENT Hx HEENT Problems: No - RENAL Hx Chronic Kidney Disease: Yes - ENDOCRINE/METABOLIC Hx Endocrine Disorders: Yes - HEMATOLOGICAL/ONCOLOGICAL Hx Human Immunodeficiency Virus (HIV): No - INTEGUMENTARY Hx Dermatological Problems: No - MUSCULOSKELETAL/RHEUMATOLOGICAL Hx Musculoskeletal Disorders: No Hx Falls: No - GASTROINTESTINAL Hx Gastrointestinal Disorders: No - GENITOURINARY/GYNECOLOGICAL Hx Genitourinary Disorders: Yes - PSYCHIATRIC Hx Psychophysiologic Disorder: No Hx Substance Use: No - SURGICAL HISTORY Hx Surgeries: Yes Other/Comment: bowel surgery, left knee - ANESTHESIA Hx Anesthesia: Yes Hx Anesthesia Reactions: No Meds Allergies/Adverse Reactions: Allergies Allergy/AdvReac Type Severity Reaction Status Date / Time pollen extracts Allergy SHORTNESS Verified 05/12/18 10:25 OF BREATH - Medications Medications: Current Medications Dextrose (Dextrose 50% Inj) 0 ml IV STAT PRN; Protocol PRN Reason: Hypoglycemia Protocol Dextrose (Glutose 15) 0 gm PO ONCE PRN; Protocol PRN Reason: Hypoglycemia Protocol Finasteride (Proscar) 5 mg PO DAILY [facility] Last Admin: 05/13/18 09:42 Dose: 5 mg Folic Acid (Folic Acid) 1 mg PO DAILY [facility] Last Admin: 05/13/18 09:42 Dose: 1 mg Glucagon (Glucagen Diagnostic Kit) 0 mg IM STAT PRN; Protocol PRN Reason: Hypoglycemia Protocol Potassium Chloride/Dextrose/Sod Cl (Potassium Chl 20 Meq In D5-1/2ns) 1,000 mls @ 120 mls/hr IV .Q8H20M [facility] Last Admin: 05/13/18 04:34 Dose: Not Given Insulin Human Regular (Humulin R) 0 units SC ACHS [facility]; Protocol Last Admin: 05/13/18 06:36 Dose: Not Given Tamsulosin HCl (Flomax) 0.8 mg PO DAILY [facility] Last Admin: 05/13/18 09:42 Dose: 0.8 mg Physical Exam - Constitutional Appears: No Acute Distress - Eye Exam Eye Exam: absent: Conjunctival injection - ENT Exam ENT Exam: Mucous Membranes Moist - Respiratory Exam Respiratory Exam: NORMAL BREATHING PATTERN. absent: Chest Wall Tenderness - Cardiovascular Exam Cardiovascular Exam: absent: Gallop, JVD, Rubs - GI/Abdominal Exam GI & Abdominal Exam: Normal Bowel Sounds. absent: Guarding - Extremities Exam Extremities exam: Negative for: calf tenderness - Back Exam Back exam: absent: CVA tenderness (L), CVA tenderness (R) - Neurological Exam Neurological exam: Alert Results - Vital Signs Recent Vital Signs: Last Vital Signs Temp 97.8 F 05/13/18 12:27 Pulse 63 05/13/18 12:27 Resp 20 05/13/18 12:27 BP 119/53 L 05/13/18 12:27 Pulse Ox 98 05/13/18 12:27 - Labs Result Diagrams: 05/13/18 04:30 05/13/18 04:30 Labs: Laboratory Results - last 24 hr 05/12/18 05/12/18 05/12/18 11:58 12:15 12:15 WBC RBC Hgb Hct MCV MCH MCHC RDW Plt Count PT 11.0 INR 1.0 Sodium 138 Potassium 4.1 Chloride 102 Carbon Dioxide 22 Anion Gap 18 BUN 48 H Creatinine 2.4 H Est GFR ( Amer) 31 Est GFR (Non-Af Amer) 26 POC Glucose (mg/dL) Random Glucose 180 H Calcium 10.6 H Iron TIBC % Saturation Ferritin Total Bilirubin 0.3 AST 20 ALT 19 L Alkaline Phosphatase 51 Total Protein 6.8 Albumin 3.9 Globulin 2.9 Albumin/Globulin Ratio 1.3 Urine Color Urine Clarity Urine pH Ur Specific [place] Urine Protein Urine Glucose (UA) Urine Ketones Urine Blood Urine Nitrate Urine Bilirubin Urine Urobilinogen Ur Leukocyte Esterase Urine RBC (Auto) Urine Microscopic WBC Ur Squamous Epith Cells Stool Occult Blood Positive H Blood Type Antibody Screen Crossmatch BBK History Checked 05/12/18 05/12/18 05/12/18 12:15 15:43 16:15 WBC RBC Hgb Hct MCV MCH MCHC RDW Plt Count PT INR Sodium Potassium Chloride Carbon Dioxide Anion Gap BUN Creatinine Est GFR ( Amer) Est GFR (Non-Af Amer) POC Glucose (mg/dL) 52 L 216 H Random Glucose Calcium Iron TIBC % Saturation Ferritin Total Bilirubin AST ALT Alkaline Phosphatase Total Protein Albumin Globulin Albumin/Globulin Ratio Urine Color Urine Clarity Urine pH Ur Specific [place] Urine Protein Urine Glucose (UA) Urine Ketones Urine Blood Urine Nitrate Urine Bilirubin Urine Urobilinogen Ur Leukocyte Esterase Urine RBC (Auto) Urine Microscopic WBC Ur Squamous Epith Cells Stool Occult Blood Blood Type O POSITIVE Antibody Screen Negative Crossmatch See Detail BBK History Checked Patient has bt 05/12/18 05/12/18 05/12/18 16:56 21:10 22:49 WBC RBC Hgb Hct MCV MCH MCHC RDW Plt Count PT INR Sodium Potassium Chloride Carbon Dioxide Anion Gap BUN Creatinine Est GFR ( Amer) Est GFR (Non-Af Amer) POC Glucose (mg/dL) 71 120 H Random Glucose Calcium Iron TIBC % Saturation Ferritin Total Bilirubin AST ALT Alkaline Phosphatase Total Protein Albumin Globulin Albumin/Globulin Ratio Urine Color Yellow Urine Clarity Slightly cloudy Urine pH 6.0 Ur Specific [place] 1.011 Urine Protein 100 Urine Glucose (UA) 50 Urine Ketones Negative Urine Blood Moderate Urine Nitrate Negative Urine Bilirubin Negative Urine Urobilinogen 0.2-1.0 Ur Leukocyte Esterase Neg Urine RBC (Auto) 9 H Urine Microscopic WBC 3 Ur Squamous Epith Cells < 1 Stool Occult Blood Blood Type Antibody Screen Crossmatch BBK History Checked 05/13/18 05/13/18 05/13/18 04:30 04:30 04:30 WBC 5.3 RBC 2.69 L Hgb 8.3 L Hct 24.5 L MCV 91.0 MCH 30.8 MCHC 33.9 RDW 13.7 Plt Count 237 PT INR Sodium 138 Potassium 4.7 Chloride 103 Carbon Dioxide 24 Anion Gap 16 BUN 39 H Creatinine 2.2 H Est GFR ( Amer) 35 Est GFR (Non-Af Amer) 29 POC Glucose (mg/dL) Random Glucose 171 H Calcium 10.6 H Iron 78 TIBC 303 % Saturation 26 Ferritin 25.2 Total Bilirubin AST ALT Alkaline Phosphatase Total Protein Albumin Globulin Albumin/Globulin Ratio Urine Color Urine Clarity Urine pH Ur Specific [place] Urine Protein Urine Glucose (UA) Urine Ketones Urine Blood Urine Nitrate Urine Bilirubin Urine Urobilinogen Ur Leukocyte Esterase Urine RBC (Auto) Urine Microscopic WBC Ur Squamous Epith Cells Stool Occult Blood Blood Type Antibody Screen Crossmatch BBK History Checked 05/13/18 05/13/18 05:17 11:06 WBC RBC Hgb Hct MCV MCH MCHC RDW Plt Count PT INR Sodium Potassium Chloride Carbon Dioxide Anion Gap BUN Creatinine Est GFR ( Amer) Est GFR (Non-Af Amer) POC Glucose (mg/dL) 176 H 251 H Random Glucose Calcium Iron TIBC % Saturation Ferritin Total Bilirubin AST ALT Alkaline Phosphatase Total Protein Albumin Globulin Albumin/Globulin Ratio Urine Color Urine Clarity Urine pH Ur Specific [place] Urine Protein Urine Glucose (UA) Urine Ketones Urine Blood Urine Nitrate Urine Bilirubin Urine Urobilinogen Ur Leukocyte Esterase Urine RBC (Auto) Urine Microscopic WBC Ur Squamous Epith Cells Stool Occult Blood Blood Type Antibody Screen Crossmatch BBK History Checked Assessment & Plan (1) LLOYD (acute kidney injury) Assessment and Plan: Acute kidney injury probably related to GI bleeding and hemo-dynamic changes History of CVA of the colon 2007 History of CVA of the prostate and history of radiation therapy Hypercalcemia Anemia My recommendation Gentle hydration Kidney function started to improve already serum creatinine trending down. Continue to monitor Hypercalcemia need further evaluation including serum PTH and phosphorus however I believe it may be related to the CA of the prostate which need further evaluation regarding bone . Management of lower GI bleeding at the present Consider bone survey to rule out metastatic disease or CAT scan of the lumbosacral spine Status: Acute (2) Gastrointestinal hemorrhage Status: Acute (3) Malignancy Status: Acute (4) Severe anemia Status: Resolved
--- NOTE | 2018-05-13 13:20 | CP.PCM.PN ---
<Che Ramsey - Last Filed: 05/13/18 13:15> Subjective - Date & Time of Evaluation Date of Evaluation: 05/13/18 Time of Evaluation: 13:15 - Subjective Subjective: Nurse notes, labs, and charts reviewed. 8:45 AM: patient went for sigmoidoscopy 10:00AM Patient seen and examined at bedside. States improvement in weakness/fatigue. Denies dizziness, nausea/vomiting. Endorses having an appetite. Objective - Vital Signs/Intake and Output Vital Signs (last 24 hours): Temp Pulse Resp BP Pulse Ox 97.8 F 63 20 119/53 L 98 05/13/18 12:27 05/13/18 12:27 05/13/18 12:27 05/13/18 12:27 05/13/18 12:27 Intake and Output: 05/13/18 05/13/18 06:59 18:59 Intake Total 0 Balance 0 - Medications Medications: Current Medications Dextrose (Dextrose 50% Inj) 0 ml IV STAT PRN; Protocol PRN Reason: Hypoglycemia Protocol Dextrose (Glutose 15) 0 gm PO ONCE PRN; Protocol PRN Reason: Hypoglycemia Protocol Finasteride (Proscar) 5 mg PO DAILY [facility] Last Admin: 05/13/18 09:42 Dose: 5 mg Folic Acid (Folic Acid) 1 mg PO DAILY [facility] Last Admin: 05/13/18 09:42 Dose: 1 mg Glucagon (Glucagen Diagnostic Kit) 0 mg IM STAT PRN; Protocol PRN Reason: Hypoglycemia Protocol Potassium Chloride/Dextrose/Sod Cl (Potassium Chl 20 Meq In D5-1/2ns) 1,000 mls @ 120 mls/hr IV .Q8H20M [facility] Last Admin: 05/13/18 04:34 Dose: Not Given Insulin Human Regular (Humulin R) 0 units SC ACHS [facility]; Protocol Last Admin: 05/13/18 12:31 Dose: 4 u Tamsulosin HCl (Flomax) 0.8 mg PO DAILY [facility] Last Admin: 05/13/18 09:42 Dose: 0.8 mg - Labs Labs: 05/13/18 04:30 05/13/18 04:30 PT 11.0 Seconds (9.8-13.1) 05/12/18 12:15 INR 1.0 05/12/18 12:15 - Constitutional Appears: No Acute Distress - ENT Exam ENT Exam: Mucous Membranes Moist - Respiratory Exam Respiratory Exam: Clear to Ausculation Bilateral, NORMAL BREATHING PATTERN - Cardiovascular Exam Cardiovascular Exam: REGULAR RHYTHM, +S1, +S2 - GI/Abdominal Exam GI & Abdominal Exam: Soft, Normal Bowel Sounds. absent: Tenderness - Extremities Exam Extremities Exam: Normal Inspection, Pedal Edema. absent: Calf Tenderness, Tenderness - Neurological Exam Neurological Exam: Alert, Awake - Skin Skin Exam: Dry, Intact, Warm Assessment and Plan - Assessment and Plan (Free Text) Assessment: 83 y/o male w/ pmhx of colon cancer (2008), prostate cancer (2018) s/p radiation, stroke, DM2, and HTN admitted w/ LLOYD on CKD and anemia 2/2 to GIB, now s/p 1 unit of PRBC transfusion and flex sigmoidoscopy showing radiation proctitis and no active bleeding. Will transfuse Anemia likely 2/2 GIB s/p transfusion of 1 unit of PRBC, transfuse 2 more units FOBT positive in ER Gasteroenterology consulted; appreciate recs; flex sigmoidoscopy 05/13/2018: Blood in recto-sigmoid colon, no blood past 20 cm where formed stool was present, mucosa pale likely 2/2 radiation proctitis. no active bleeding, decreased mucosa vascular pattern in the rectum. Repeat flex sigmoidoscopy in 3 day Protonix 40mg IV QD follow up H/H Acute on Chronic Kidney Disease Likely multi-factorial Nephrology consulted; appreciate recommendations: gental hydration and monitor hypercalcemia, PTH and phos IV fluid hydration D5W w/ 0.45%NS + 20 mEq KCl- trend bmp Hold nephrotoxic agents Hx of HTN Chronic. Controlled. Will hold BP meds for now monitor BP Hx of DM Chronic. Controlled. Hold metformin Coverage scale in place Monitor for hypoglycemia Will f/u [id number] Hx of BPH Cont. home med, flomax Diet: Advance as tolerated DVT prophylaxis SCDs Code Status Full Code <Tonie Pablo - Last Filed: 05/14/18 16:39> Objective - Vital Signs/Intake and Output Vital Signs (last 24 hours): Temp Pulse Resp BP Pulse Ox 98.6 F 70 18 167/73 H 97 05/14/18 12:39 05/14/18 12:39 05/14/18 12:39 05/14/18 12:39 05/14/18 12:39 Intake and Output: 05/14/18 05/14/18 06:59 18:59 Intake Total 375 Balance 375 - Labs Labs: 05/14/18 06:00 05/14/18 06:00 PT 11.0 Seconds (9.8-13.1) 05/12/18 12:15 INR 1.0 05/12/18 12:15 Attending/Attestation - Attestation I have personally seen and examined this patient.: Yes I have fully participated in the care of the patient.: Yes I have reviewed all pertinent clinical information, including history, physical exam and plan: Yes Notes (Text): 05/14/18 16:38 patient seene xamined bedside feeling well discussed with GI, radiation prostatitis, chronic bleeding. recommended transfusing 2 more units after receivng ddavp. likely discharge in am
--- NOTE | 2018-05-13 15:11 | PQF ---
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 Please specify the cause (includes suspected or probable cause) if known after the work up is completed: Such as: -- Due to acute blood loss -- Due to chronic blood loss -- Due to iron deficiency -- Due to postoperative blood loss -- Due to chronic disease -- Other, please specify H/H: 7.3/21.3->8.3/24.5 H and P includes; admitted w/ LLOYD on CKD and anemia 2/2 to GIB. --Anemia likely 2/2 GIB ;Admit to telemetry hgb 7.2 transfuse 1 unit PRBC FOBT positive in ER Gastero enterology consulted; appreciate recs Protonix 40mg IV QD follow up H/H 05/13 GI: Gastrointestinal hemorrhage :Rectal bleeding in patient with h/o prostate radiation.R/o radi ation proctitis.Will do flex sig today.DDAVP dose.Status: Acute -folic acid The patient's Clinical Indicators include: --- Query created by: Yessica Snowden on 05/13/2018 10:31 AM Electronically signed by: Tonie Pablo MD 05/13/2018 3:09 PM
--- NOTE | 2018-05-13 15:11 | PQF ---
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 Please specify the disease stage ( includes probable or suspected) if known: Such as: -- Chronic kidney disease Stage 1 -- Chronic kidney disease Stage 2 -- Chronic kidney disease Stage 3 -- Chronic kidney disease Stage 4 -- Chronic kidney disease Stage 5 -- Chronic kidney disease Stage 5, requiring dialysis -- End Stage Renal Disease -- Other, please specify BUN:48->39 Creatinine:2.4->2.2 Est GFR ( Amer):31->35 Est GFR (NonAfrican Amer):26-> 29 ER note includes; Creatinine level from prior visit noted to be 1.4; current level is 2.4 guainc positive H and P includes; --Acute on Chronic Kidney Disease :Likely multi-factorial Nephrology consulted; ermias reciate recommendations IV fluid hydration D5W w/ 0.45%NS + 20 mEq KCl- --Anemia likely 2/2 GIB ;Admit to telemetry hgb 7.2 transfuse 1 unit PRBC FOBT positive in ER Proton ix 40mg IV QD follow up H/H Stages are defined by the [employer] as follows: CKD Stage I GFR >= 90 ml / min per 1.73 m2 and persistent albuminuria CKD Stage 2 GFR between 60 and 89 with persistent albuminuria CKD Stage 3 GFR between 30 and 59 CKD Stage 4 GFR between 15 and 29 CKD Stage 5 GFR between <15 or End Stage Renal Disease The patient's Clinical Indicators include: ---- Query created by: Yessica Snowden on 05/13/2018 10:24 AM Electronically signed by: Tonie Pablo MD 05/13/2018 3:09 PM
[2018-05-13] MEDS: Dextrose 5%/0.45% NS 1,000 ML IV SCH (20:44)
[2018-05-13 20:56] VITALS: RESP 18
[2018-05-14 07:15] LABS: BASO % 0.5 % (0.0-2.0); EOS # 0.1 K/uL (0.0-0.7); EOS % 2.6 % (0.0-4.0); HEMOGLOBIN 10.3 g/dL (12.0-18.0); LYMPH # 0.7 K/uL (1.0-4.3); LYMPH % 12.1 % (20.0-40.0); MEAN CELL VOLUME 90.5 fl (80.0-94.0); MEAN CORPUSCULAR HEMOGLOBIN 31.2 pg (27.0-31.0); MEAN CORPUSCULAR HGB CONC 34.4 g/dL (33.0-37.0); MEAN PLATELET VOLUME 9.2 fl (7.2-11.7); MONO # 0.6 K/uL (0.0-0.8); NEUT # 4.3 K/uL (1.8-7.0); NEUT % 74.8 % (50.0-75.0); RBC 3.31 Mil/uL (4.40-5.90); RED CELL DISTRIBUTION WIDTH 13.6 % (11.5-14.5); WHITE BLOOD COUNT 5.7 K/uL (4.8-10.8)
[2018-05-14 07:30] LABS: ALB/GLOB RATIO 1.2 (1.0-2.1); ALBUMIN 3.5 g/dL (3.5-5.0); CALCIUM 9.9 mg/dL (8.4-10.2)
[2018-05-14 09:04] VITALS: TEMP 98.6
[2018-05-14] MEDS: Dextrose 5%/0.45% NS 1,000 ML IV SCH (09:10)
[2018-05-14] MEDS: Insulin Regular 100 units/ml SC SCH ×2 (09:12→11:24)
[2018-05-14 12:40] VITALS: BP 167/73; PULSE 70; O2SAT 97
--- NOTE | 2018-05-14 13:30 | CP.PCM.DIS ---
Provider - Provider Date of Admission: 05/12/18 14:26 Attending physician: Tonie Pablo DO Primary care physician: Consults: 05/12/18 14:21 Gastroenterology Consult Stat Comment: Consulting Provider: Chaz Rosario Consulting Physician: Chaz Rosario Reason for Consult: gi bleed Nephrology Consult Stat Comment: Consulting Provider: Dre Weiss Consulting Physician: Dre Weiss Reason for Consult: renal insuff Time Spent in preparation of Discharge (in minutes): 20 Hospital Course - Lab Results Lab Results: Micro Results 05/12/18 16:56 Urine,Clean Catch Urine Culture - Final No Growth (<1,000 CFU/ML) Most Recent Lab Values WBC 5.7 K/uL (4.8-10.8) 05/14/18 06:00 RBC 3.31 Mil/uL (4.40-5.90) L 05/14/18 06:00 Hgb 10.3 g/dL (12.0-18.0) L D 05/14/18 06:00 Hct 29.9 % (35.0-51.0) L 05/14/18 06:00 MCV 90.5 fl (80.0-94.0) 05/14/18 06:00 MCH 31.2 pg (27.0-31.0) H 05/14/18 06:00 MCHC 34.4 g/dL (33.0-37.0) 05/14/18 06:00 RDW 13.6 % (11.5-14.5) 05/14/18 06:00 Plt Count 211 K/uL (130-400) 05/14/18 06:00 MPV 9.2 fl (7.2-11.7) 05/14/18 06:00 Neut % (Auto) 74.8 % (50.0-75.0) 05/14/18 06:00 Lymph % (Auto) 12.1 % (20.0-40.0) L 05/14/18 06:00 [place] % (Auto) 10.0 % (0.0-10.0) 05/14/18 06:00 Eos % (Auto) 2.6 % (0.0-4.0) 05/14/18 06:00 Baso % (Auto) 0.5 % (0.0-2.0) 05/14/18 06:00 Neut # (Auto) 4.3 K/uL (1.8-7.0) 05/14/18 06:00 Lymph # (Auto) 0.7 K/uL (1.0-4.3) L 05/14/18 06:00 [place] # (Auto) 0.6 K/uL (0.0-0.8) 05/14/18 06:00 Eos # (Auto) 0.1 K/uL (0.0-0.7) 05/14/18 06:00 Baso # (Auto) 0.0 K/uL (0.0-0.2) 05/14/18 06:00 PT 11.0 Seconds (9.8-13.1) 05/12/18 12:15 INR 1.0 05/12/18 12:15 Sodium 136 mmol/l (132-148) 05/14/18 06:00 Potassium 3.9 MMOL/L (3.6-5.0) 05/14/18 06:00 Chloride 102 mmol/L (98-107) 05/14/18 06:00 Carbon Dioxide 22 mmol/L (22-30) 05/14/18 06:00 Anion Gap 16 (10-20) 05/14/18 06:00 BUN 46 mg/dl (9-20) H 05/14/18 06:00 Creatinine 2.4 mg/dl (0.8-1.5) H 05/14/18 06:00 Est GFR ( Amer) 31 05/14/18 06:00 Est GFR (Non-Af Amer) 26 05/14/18 06:00 POC Glucose (mg/dL) 238 mg/dL (65-110) H 05/14/18 10:45 Random Glucose 201 mg/dL (75-110) H 05/14/18 06:00 Hemoglobin A1c 6.6 % (4.2-6.5) H 05/13/18 04:30 Calcium 9.9 mg/dL (8.4-10.2) 05/14/18 06:00 Phosphorus 3.9 mg/dl (2.5-4.5) 05/14/18 06:00 Magnesium 2.1 MG/DL (1.6-2.3) 05/14/18 06:00 Iron 78 ug/dL (49-181) 05/13/18 04:30 TIBC 303 ug/dL (250-450) 05/13/18 04:30 % Saturation 26 % (20-55) 05/13/18 04:30 Ferritin 25.2 ng/Ml (17.9-464) 05/13/18 04:30 Total Bilirubin 0.9 mg/dl (0.2-1.3) 05/14/18 06:00 AST 18 U/L (17-59) 05/14/18 06:00 ALT 15 U/L (21-72) L D 05/14/18 06:00 Alkaline Phosphatase 50 U/L (38-126) 05/14/18 06:00 Total Protein 6.4 G/DL (6.3-8.2) 05/14/18 06:00 Albumin 3.5 g/dL (3.5-5.0) 05/14/18 06:00 Globulin 2.9 gm/dL (2.2-3.9) 05/14/18 06:00 Albumin/Globulin Ratio 1.2 (1.0-2.1) 05/14/18 06:00 Urine Color Yellow (YELLOW) 05/12/18 16:56 Urine Clarity Slightly cloudy (Clear) 05/12/18 16:56 Urine pH 6.0 (5.0-8.0) 05/12/18 16:56 Ur Specific [place] 1.011 (1.003-1.030) 05/12/18 16:56 Urine Protein 100 mg/dL (NEGATIVE) 05/12/18 16:56 Urine Glucose (UA) 50 mg/dL (NEGATIVE) 05/12/18 16:56 Urine Ketones Negative mg/dL (NEGATIVE) 05/12/18 16:56 Urine Blood Moderate (NEGATIVE) 05/12/18 16:56 Urine Nitrate Negative (NEGATIVE) 05/12/18 16:56 Urine Bilirubin Negative (NEGATIVE) 05/12/18 16:56 Urine Urobilinogen 0.2-1.0 mg/dL (0.2-1.0) 05/12/18 16:56 Ur Leukocyte Esterase Neg [place]/uL (Negative) 05/12/18 16:56 Urine RBC (Auto) 9 /hpf (0-3) H 05/12/18 16:56 Urine Microscopic WBC 3 /hpf (0-5) 05/12/18 16:56 Ur Squamous Epith Cells < 1 /hpf (0-5) 05/12/18 16:56 Stool Occult Blood Positive (NEGATIVE) H 05/12/18 11:58 Blood Type O POSITIVE 05/12/18 12:15 Antibody Screen Negative 05/12/18 12:15 Crossmatch See Detail 05/12/18 12:15 BBK History Checked Patient has bt 05/12/18 12:15 - Hospital Course Hospital Course: 83 y/o male with PMH of colon cancer (2007), prostate cancer (2017) s/p chemo and radiation, stroke, DM2, and HTN sent from PMD-s office for evaluation of anemia and worsening renal function . As per patient he finished chemo and radiation therapy several months ago and has been having on and off fresh blood per rectum. He was admitted at [facility] in January 2018 with GI bleed and underwent colonoscopy and was told had slowly bleeding vein? This time his Hgb was found to be 7.3, BUN/Cr 48/2.4 . He got admitted with LLOYD anemia secondary to GIB. GI and Nephro were consulted He was transfused total 3 unit PRBC with Hgb 10.3 today. He underwent sigmoidoscopy 05/13 that showed proctitis, no active bleeding.Patient at present is hemodynamically stable, with no more rectal bleeding for the past 48 hours . Patient feeling better , denies any dizziness, abdominal pain ,palpitations, SOB, tolerating diet. Cleared by GI for discharge home with follow up with Dr. Rosario on Wednesday . During this admission nephrology was consulted for worsening renal function and was started on IVF and transfused . Renal function remaining stable with no improvement . He is voiding freely with no fluid overload no electrolyte abnormalities .Will discharge patient home with follow up with Nephro. Patient to follow up with Dr. Brayden Verdin for outpatient bone scan to rule out metastasis Follow up with PMD Dr. Watts 1.Acute blood loss Anemia likely secondary to lower GIB s/p 3 unit unit PRBC transfusion with Hgb 10.3 today Sigmodoiscopy showed Proctitis , most likely radiation induced Rectal bleed resolved Will need repeat Sigmoidoscopty as out patient 2. 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 absent: Rales, Rhonchi, Wheezes, Respiratory Distress - Cardiovascular Exam Cardiovascular Exam: REGULAR RHYTHM, RRR, +S1, +S2. absent: JVD - GI/Abdominal Exam GI & Abdominal Exam: Normal Bowel Sounds, Soft. absent: Distended, Guarding, Rebound, Tenderness - Rectal Exam Rectal Exam: Deferred - Extremities Exam Extremities exam: normal capillary refill, normal inspection, pedal pulses present - Back Exam Back exam: NORMAL INSPECTION - Neurological Exam Neurological exam: Alert, CN II-XII Intact, Oriented x3, Reflexes Normal - Psychiatric Exam Psychiatric exam: Normal Affect - Skin Skin Exam: Dry, Intact, Pallor, Warm Discharge Plan - Follow Up Plan Condition: IMPROVED Disposition: HOME/ ROUTINE Patient education suggested?: Yes Instructions: Gastrointestinal Bleeding (DC) Additional Instructions: Follow up with Dr. Rosario Referrals: Joshua Watts MD [Family Provider] - Chaz Rosario MD [Staff Provider] -
--- NOTE | 2018-05-16 09:51 | PQF ---
PROVIDER RESPONSE TEXT: Unable to determine stage of CKD REVIEWER QUERY TEXT: Conflicting Documentation Clarification Discrepancy in diagnoses: Query response: No CKD versus D/C Summary documentation of: Most likely pat ient has some degree of CKD Please clarify the Stage of the CKD if ruled in and known --Versus CKD ruled out --Unable to determine -- Other, please specify Creatinine:12/09/17-12/10/17:1.5->.1.4 ----- 05/12/18-05/14/18 2.4-> 2.2->2.4 Est GFR( Amer):12/09/17-12/10/17:54->59-----05/12/17-05/14/17::31->35->31 Est GFR(Non Af Amer):12/09/17-12/10/17:45->49------05/12/18-05/14/18:26->29->26 Stages are defined by the National [employer] as follows: CKD Stage I GFR >= 90 ml / min per 1.73 m2 and persistent albuminuria CKD Stage 2 GFR between 60 and 89 with persistent albuminuria CKD Stage 3 GFR between 30 and 59 CKD Stage 4 GFR between 15 and 29 CKD Stage 5 GFR between <15 or End Stage Renal Disease The patient's Clinical Indicators include: ----- Query created by: Yessica Snowden on 05/16/2018 8:23 AM Electronically signed by: Tatiana Mitchell 05/16/2018 9:48 AM
== END 2018-05-14 14:15 | disposition home or self-care (01) | DRG 394 ==
LOC: H.ER 10:11 → H.ERHOLD 14:26 → H.TEL 16:22
PROVIDERS: ADMIT Student in an Organized Health Care Education/Training Program; ATTEND Student in an Organized Health Care Education/Training Program
PROC: 30233N1 Transfusion of Nonautologous Red Blood Cells into Peripheral Vein, Percutaneous Approach (ICD-10-PCS; 2018-05-12)
PROC: 3E02340 Introduction of Influenza Vaccine into Muscle, Percutaneous Approach (ICD-10-PCS; 2018-05-12)
PROC: 0DJD8ZZ Inspection of Lower Intestinal Tract, Via Natural or Artificial Opening Endoscopic (ICD-10-PCS; principal; 2018-05-13 08:30)
DX: K62.7 Radiation proctitis (principal); N17.9 Acute kidney failure, unspecified; D62 Acute posthemorrhagic anemia; K92.2 Gastrointestinal hemorrhage, unspecified; E11.9 Type 2 diabetes mellitus without complications; I10 Essential (primary) hypertension; E83.52 Hypercalcemia; E78.00 Pure hypercholesterolemia, unspecified; N40.0 Benign prostatic hyperplasia without lower urinary tract symptoms; Y84.2 Radiological procedure and radiotherapy as the cause of abnormal reaction of the patient, or of later complication, without mention of misadventure at the time of the procedure; Z85.46 Personal history of malignant neoplasm of prostate; Z85.038 Personal history of other malignant neoplasm of large intestine; Z92.3 Personal history of irradiation; Z92.21 Personal history of antineoplastic chemotherapy; Z23 Encounter for immunization; Z86.73 Personal history of transient ischemic attack (TIA), and cerebral infarction without residual deficits; Z87.891 Personal history of nicotine dependence; Z79.84 Long term (current) use of oral hypoglycemic drugs